=== PATIENT | male | born 1945 | race Caucasian/White ===

== ENCOUNTER 2018-01-28 04:13 | Inpatient (IN) | payer OTHER, MEDICARE ==
[~2018-01-28] VITALS: Ht 177.8 cm; Wt 99.4 kg
[~2018-01-28 04:13] MED LIST: CLOP75TA41 PO; FLUT27.52; GABA300C10 PO; IBUP800T24 PO; MONT10TA34 PO; NOR10T PO; PANT1INJ3 IV; PITA4TAB PO; THEO200T26 PO; TIOTCAP INH
[2018-01-28] MEDS ORDERED: IPRATROPIUM BROM 0.5 MG/2.5ML INH SOL ONE (05:54)
[2018-01-28] MEDS ORDERED: ALBUTEROL SULF 2.5 MG/0.5ML(0.5%) NEB SOLN ONE (05:54)
[2018-01-28] MEDS ORDERED: methylPREDNISolone SOD SUCC 125 MG/2 ML VL IV ONE (06:00)
[2018-01-28] MEDS ORDERED: IPRATROPIUM BROM 0.5 MG/2.5ML INH SOL NEB ONE (06:00)
[2018-01-28] MEDS ORDERED: IPRATROPIUM BROM 0.5 MG/2.5ML INH SOL HHN ONE (06:00)
[2018-01-28] MEDS ORDERED: ALBUTEROL SULF 2.5 MG/0.5ML(0.5%) NEB SOLN NEB ONE (06:00)
[2018-01-28] MEDS ORDERED: ALBUTEROL SULF 2.5 MG/0.5ML(0.5%) NEB SOLN HHN ONE (06:00)
[2018-01-28 06:09] LABS: Basophils # (auto) 0.1 uL; Basophils % (auto) 0.6 % (0.0-2.0); Eosinophils # (auto) 0.3 uL; Eosinophils % (auto) 1.9 % (0.0-7.0); Hemoglobin 14.2 g/dL (13.5-17.5); Lymphocytes % (auto) 7.3 % (10.0-50.0); Mean Corpuscular Hemoglobin 30.7 pg (28.0-32.0); Mean Corpuscular Hgb Conc. 32.9 g/dL (32.0-36.0); Mean Corpuscular Volume 93.3 fL (80.0-100.0); Monocytes # (auto) 0.8 uL; Monocytes % (auto) 5.6 % (0.0-12.0); Neutrophils # (auto) 11.4 uL; Neutrophils % (auto) 84.6 % (37.0-80.0); Platelet Count (auto) 206 10^3/uL (140-450); Red Blood Cells 4.61 10^6/uL (4.5-5.90); Red Cell Distribution Width 14.8 % (11.8-14.3); White Blood Cell 13.5 10^3/uL (4.4-10.8)
[2018-01-28 06:28] LABS: Albumin 3.3 g/dL (3.4-5.0); Calcium 8.4 mg/dL (8.5-10.1)
[2018-01-28 06:33] LABS: Bilirubin, Total 0.5 mg/dL (0.2-1.0); Total Protein 6.6 g/dL (6.4-8.2)
[2018-01-28 06:36] LABS: Magnesium 1.9 mg/dL (1.6-2.6)
[2018-01-28] MEDS ORDERED: LACTULOSE 20Gm/30ML SOLN PO PRN (08:45)
[2018-01-28] MEDS ORDERED: LORazepam 0.5 MG TAB PO PRN (08:45)
[2018-01-28] MEDS ORDERED: ALBUTEROL SULF 2.5 MG/0.5ML(0.5%) NEB SOLN NEB PRN (08:45)
[2018-01-28] MEDS ORDERED: MORPHINE SULFATE 4 MG/ML SYR/VIAL IV PRN ×2 (08:45)
[2018-01-28] MEDS ORDERED: HYDROcodone-ACET 5/325MG TAB PO PRN (08:45)
[2018-01-28] MEDS ORDERED: NITROGLYCERIN 0.4 MG SL TAB SL PRN (08:45)
[2018-01-28] MEDS ORDERED: PROMETHAZINE HCL 25 MG/ML 1ML IV PRN (08:45)
[2018-01-28] MEDS: DOXYCYCLINE 100MG/250ML 250 ML IV SCH ×2 (09:05→20:43)
[2018-01-28] MEDS: SODIUM CHLORIDE 0.9% 1,000 ML IV SCH ×2 (09:05→21:49)
[2018-01-28 09:06] VITALS: BP 103/62
[2018-01-28] MEDS: GABAPENTIN 300 MG CAP PO SCH ×3 (09:10→21:48)
[2018-01-28 09:26] LABS: INR 0.91 (0.9-1.15); Partial Thromboplastin Time 24.7 sec (23.78-33.04); Prothrombin Time 9.8 sec (9.27-12.13)
[2018-01-28] MEDS: THEOPHYLLINE 80 MG/15ml ORAL Elixir PO SCH ×2 (09:36→10:00)
[2018-01-28] MEDS: ASPirin 81 mg TAB PO SCH (10:42)
[2018-01-28] MEDS: CLOPIDOGREL BISULFATE 75 MG TAB PO SCH (10:42)
[2018-01-28] MEDS: PANTOPRAZOLE 40 MG TAB PO SCH (10:42)
[2018-01-28] MEDS: ENOXAPARIN SOD 80 MG/0.8ML SYRINGE SC SCH ×3 (10:43→22:00)
[2018-01-28] MEDS: MONTELUKAST SODIUM 10 MG TAB PO SCH (10:43)
[2018-01-28] MEDS: KETOCONAZOLE 2 % TOPICAL CREAM 15GM TOP SCH ×2 (11:01→21:49)
[2018-01-28] MEDS: ALBUTEROL SULF 2.5 MG/0.5ML(0.5%) NEB SOLN NEB SCH ×2 (12:00→18:21)
[2018-01-28] MEDS: IPRATROPIUM BROM 0.5 MG/2.5ML INH SOL NEB SCH ×2 (12:00→18:21)
[2018-01-28] MEDS: methylPREDNISolone SOD SUCC 40 MG/ML VL IV SCH (12:24)
[2018-01-28] MEDS: ACETAMINOPHEN 500 MG TAB PO PRN (14:01)
[2018-01-28] MEDS ORDERED: ACETYLCYSTEINE ORAL for CIN 20%(200MG/ML) 4ML PO ONE (17:15)
[2018-01-28 20:54] VITALS: BP 107/63
[2018-01-28] MEDS: ATORVASTATIN 20 MG TAB PO SCH (21:48)
[2018-01-28 21:55] VITALS: BP 107/63
[2018-01-29] MEDS: ALBUTEROL SULF 2.5 MG/0.5ML(0.5%) NEB SOLN NEB SCH ×3 (00:40→11:28)
[2018-01-29] MEDS: IPRATROPIUM BROM 0.5 MG/2.5ML INH SOL NEB SCH ×4 (00:40→19:00)
[2018-01-29] MEDS: methylPREDNISolone SOD SUCC 40 MG/ML VL IV SCH ×3 (03:33→17:06)
[2018-01-29 05:00] VITALS: BP 147/81
[2018-01-29] MEDS: ACETAMINOPHEN 500 MG TAB PO PRN (05:04)
[2018-01-29] MEDS: GABAPENTIN 300 MG CAP PO SCH ×4 (05:42→20:59)
[2018-01-29 06:54] LABS: Cholesterol 91 mg/dL (< 200); HDL Cholesterol 57 mg/dL (40-59); LDL Cholesterol 39 mg/dL (< 100); Triglycerides 63 mg/dL (< 150)
[2018-01-29 09:00] VITALS: BP 98/65
[2018-01-29] MEDS ORDERED: SODIUM CHLORIDE 0.9% 500 ML IV ONE (09:15)
[2018-01-29] MEDS ORDERED: cefTRIAXone 1GM/10ml IVPUSH 10 ML IV ONE (09:15)
[2018-01-29] MEDS: THEOPHYLLINE 80 MG/15ml ORAL Elixir PO SCH (10:00)
[2018-01-29] MEDS: FLUTICASONE FUROATE SCH (10:00)
[2018-01-29] MEDS: CLOPIDOGREL BISULFATE 75 MG TAB PO SCH (10:43)
[2018-01-29] MEDS: MONTELUKAST SODIUM 10 MG TAB PO SCH (10:43)
[2018-01-29] MEDS: ASPirin 81 mg TAB PO SCH (10:45)
[2018-01-29] MEDS: PANTOPRAZOLE 40 MG TAB PO SCH (10:45)
[2018-01-29] MEDS: ENOXAPARIN SOD 80 MG/0.8ML SYRINGE SC SCH ×2 (10:46→21:00)
[2018-01-29] MEDS: AZITHROMYCIN 500MG/ 250ML 250 ML IV SCH (10:50)
[2018-01-29] MEDS: ACETYLCYSTEINE ORAL for CIN 20%(200MG/ML) 4ML PO SCH ×2 (10:52→22:00)
[2018-01-29] MEDS: KETOCONAZOLE 2 % TOPICAL CREAM 15GM TOP SCH ×2 (10:53→22:00)
[2018-01-29] MEDS ORDERED: BUDESONIDE (INHALATION) 0.5 MG/2 ML NEB NEB ONE (12:00)
[2018-01-29] MEDS: LEVALBUTEROL HCL 1.25 MG/3 ML NEB NEB SCH ×2 (12:15→19:01)
[2018-01-29 13:00] VITALS: BP 108/67
[2018-01-29] MEDS ORDERED: LORazepam 2MG/ML-1ML VIAL IV ONE (13:00)
[2018-01-29 17:00] VITALS: BP 137/74
[2018-01-29] MEDS ORDERED: ALBUTEROL SULF 2.5 MG/0.5ML(0.5%) NEB SOLN ONE (17:24)
[2018-01-29] MEDS ORDERED: ACETYLCYSTEINE 10 %(100MG/ML) SOL 4ML NEB SCH (18:00)
[2018-01-29] MEDS: ACETYLCYSTEINE 10 %(100MG/ML) SOL 4ML NEB SCH (19:01)
[2018-01-29] MEDS: BUDESONIDE (INHALATION) 0.5 MG/2 ML NEB NEB SCH (19:01)
[2018-01-29] MEDS: LORazepam 2MG/ML-1ML VIAL IV PRN (19:57)
[2018-01-29] MEDS: ATORVASTATIN 20 MG TAB PO SCH (20:58)
[2018-01-29 22:00] VITALS: BP 108/60
[2018-01-30] MEDS: methylPREDNISolone SOD SUCC 40 MG/ML VL IV SCH ×5 (00:10→23:23)
[2018-01-30] MEDS: LEVALBUTEROL HCL 1.25 MG/3 ML NEB NEB SCH ×5 (00:28→23:43)
[2018-01-30] MEDS: IPRATROPIUM BROM 0.5 MG/2.5ML INH SOL NEB SCH ×5 (00:28→23:43)
[2018-01-30] MEDS: ACETYLCYSTEINE 10 %(100MG/ML) SOL 4ML NEB SCH ×5 (00:28→23:42)
[2018-01-30 05:00] VITALS: BP 113/82
[2018-01-30] MEDS: GABAPENTIN 300 MG CAP PO SCH ×3 (06:27→21:31)
[2018-01-30] MEDS: BUDESONIDE (INHALATION) 0.5 MG/2 ML NEB NEB SCH ×2 (06:55→18:20)
[2018-01-30 09:00] VITALS: BP 121/69
[2018-01-30] MEDS ORDERED: cefTRIAXone 1GM/10ml IVPUSH 10 ML IV SCH (09:00)
[2018-01-30] MEDS: AZITHROMYCIN 500MG/ 250ML 250 ML IV SCH (09:13)
[2018-01-30] MEDS: ASPirin 81 mg TAB PO SCH (09:14)
[2018-01-30] MEDS: CLOPIDOGREL BISULFATE 75 MG TAB PO SCH (09:14)
[2018-01-30] MEDS: THEOPHYLLINE 80 MG/15ml ORAL Elixir PO SCH (09:15)
[2018-01-30] MEDS: FLUTICASONE FUROATE SCH (09:32)
[2018-01-30] MEDS: ENOXAPARIN SOD 80 MG/0.8ML SYRINGE SC SCH ×3 (09:32→21:34)
[2018-01-30] MEDS: MONTELUKAST SODIUM 10 MG TAB PO SCH (09:32)
[2018-01-30] MEDS: KETOCONAZOLE 2 % TOPICAL CREAM 15GM TOP SCH ×2 (09:32→21:36)
[2018-01-30] MEDS: PANTOPRAZOLE 40 MG TAB PO SCH (09:32)
[2018-01-30] MEDS: ACETYLCYSTEINE ORAL for CIN 20%(200MG/ML) 4ML PO SCH ×2 (12:41→21:34)
[2018-01-30 13:09] VITALS: BP 104/71
[2018-01-30 13:37] LABS: Hematocrit 40.4 % (41.0-53.0); Hemoglobin 12.8 g/dL (13.5-17.5); Mean Corpuscular Hemoglobin 29.5 pg (28.0-32.0); Mean Corpuscular Hgb Conc. 31.6 g/dL (32.0-36.0); Mean Corpuscular Volume 93.3 fL (80.0-100.0); Platelet Count (auto) 185 10^3/uL (140-450); Red Blood Cells 4.33 10^6/uL (4.5-5.90); Red Cell Distribution Width 14.9 % (11.8-14.3); White Blood Cell 26.4 10^3/uL (4.4-10.8)
[2018-01-30 13:42] LABS: Basophils % (manual) 0 (0.0-2.0); Blast Cells 0; Eosinophils % (manual) 0 (0-7); Promyelocytes % 0; Reactive Lymphocytes 0
[2018-01-30 14:04] LABS: Albumin 2.5 g/dL (3.4-5.0); BUN/Creatinine Ratio 25.5; Bilirubin, Total 0.6 mg/dL (0.2-1.0); Calcium 8.7 mg/dL (8.5-10.1); Potassium 4.6 mmol/L (3.5-5.1); Total Protein 6.1 g/dL (6.4-8.2)
[2018-01-30 14:10] LABS: Band Neutrophils % (manual) 21; Lymphocytes % (manual) 2 (10.0-50.0); Metamyelocytes % 3; Monocytes % (manual) 5 (0-12); Myelocytes % 1
[2018-01-30] MEDS: PIPERACILLIN-TAZOB 3.375GM 100 ML IV SCH ×2 (14:11→19:40)
[2018-01-30] MEDS: LORazepam 2MG/ML-1ML VIAL IV PRN (15:49)
[2018-01-30 16:34] VITALS: BP 111/72
[2018-01-30] MEDS: TEMAZEPAM 15 MG CAP PO PRN (21:31)
[2018-01-30] MEDS: ATORVASTATIN 20 MG TAB PO SCH (21:31)
[2018-01-30 21:44] VITALS: BP 112/66
[2018-01-31] VITALS (14 sets, daily range): BP systolic 110–142; BP diastolic 60–91
[2018-01-31] MEDS ORDERED: ALBUTEROL SULF 2.5 MG/0.5ML(0.5%) NEB SOLN ONE (00:09)
[2018-01-31] MEDS: PIPERACILLIN-TAZOB 3.375GM 100 ML IV SCH ×4 (01:44→19:51)
[2018-01-31] MEDS: LEVALBUTEROL HCL 1.25 MG/3 ML NEB NEB SCH ×3 (05:45→17:51)
[2018-01-31] MEDS: IPRATROPIUM BROM 0.5 MG/2.5ML INH SOL NEB SCH ×3 (05:45→17:50)
[2018-01-31] MEDS: ACETYLCYSTEINE 10 %(100MG/ML) SOL 4ML NEB SCH ×3 (05:46→17:50)
[2018-01-31] MEDS: BUDESONIDE (INHALATION) 0.5 MG/2 ML NEB NEB SCH ×2 (05:49→17:51)
[2018-01-31 06:11] LABS: Basophils # (auto) 0.1 uL; Basophils % (auto) 0.3 % (0.0-2.0); Eosinophils # (auto) 0 uL; Hematocrit 39.3 % (41.0-53.0); Hemoglobin 13.3 g/dL (13.5-17.5); Lymphocytes # (auto) 0.4 uL; Lymphocytes % (auto) 1.4 % (10.0-50.0); Mean Corpuscular Hemoglobin 31.2 pg (28.0-32.0); Mean Corpuscular Hgb Conc. 33.9 g/dL (32.0-36.0); Mean Corpuscular Volume 92.1 fL (80.0-100.0); Monocytes # (auto) 0.6 uL; Monocytes % (auto) 2.6 % (0.0-12.0); Neutrophils # (auto) 23.9 uL; Neutrophils % (auto) 95.7 % (37.0-80.0); Platelet Count (auto) 185 10^3/uL (140-450); Red Blood Cells 4.27 10^6/uL (4.5-5.90); Red Cell Distribution Width 14.3 % (11.8-14.3)
[2018-01-31] MEDS: methylPREDNISolone SOD SUCC 40 MG/ML VL IV SCH ×3 (06:11→17:23)
[2018-01-31] MEDS: GABAPENTIN 300 MG CAP PO SCH ×3 (06:11→21:55)
[2018-01-31 06:27] LABS: BUN/Creatinine Ratio 24.8; Calcium 8.3 mg/dL (8.5-10.1); Potassium 4.2 mmol/L (3.5-5.1)
[2018-01-31] MEDS ORDERED: VANCOMYCIN PER PHARMACY 0 MG IV SCH (08:00)
[2018-01-31] MEDS ORDERED: HYDROcodone-ACET 5/325MG TAB PO PRN (08:00)
[2018-01-31] MEDS ORDERED: MORPHINE SULFATE 4 MG/ML SYR/VIAL IV PRN ×2 (08:00)
[2018-01-31] MEDS: FLUTICASONE FUROATE SCH (09:05)
[2018-01-31] MEDS: ASPirin 81 mg TAB PO SCH (09:06)
[2018-01-31] MEDS: ONDANSETRON HCL 4 MG/2 ML VIAL IV PRN ×3 (09:11→21:38)
[2018-01-31] MEDS: CLOPIDOGREL BISULFATE 75 MG TAB PO SCH (09:16)
[2018-01-31] MEDS: PANTOPRAZOLE 40 MG TAB PO SCH (09:17)
[2018-01-31] MEDS: MONTELUKAST SODIUM 10 MG TAB PO SCH (09:18)
[2018-01-31] MEDS: THEOPHYLLINE 80 MG/15ml ORAL Elixir PO SCH (09:19)
[2018-01-31] MEDS: KETOCONAZOLE 2 % TOPICAL CREAM 15GM TOP SCH ×2 (09:29→21:55)
[2018-01-31] MEDS: LORazepam 2MG/ML-1ML VIAL IV PRN ×2 (09:29→21:55)
[2018-01-31] MEDS: ENOXAPARIN SOD 80 MG/0.8ML SYRINGE SC SCH ×3 (09:29→22:00)
[2018-01-31] MEDS ORDERED: METOCLOPRAMIDE HCL 5MG/ml INJ 2ml VIAL IV PRN (10:45)
[2018-01-31] MEDS ORDERED: FUROSEMIDE 40 MG/4 ML VIAL IV ONE (10:45)
[2018-01-31] MEDS: VANCOMYCIN 1,250 MG in D5W 5% 250 ML IV SCH ×2 (11:16→22:19)
[2018-01-31] MEDS: AZITHROMYCIN 500MG/ 250ML 250 ML IV SCH (11:51)
[2018-01-31 18:12] LABS: INR 0.9 (0.9-1.15); Prothrombin Time 9.7 sec (9.27-12.13)
[2018-01-31] MEDS ORDERED: LIDOCAINE 1% (LOCAL ANESTH.) PF 5ml SDV ID ONE (18:45)
[2018-01-31] MEDS: ATORVASTATIN 20 MG TAB PO SCH (21:55)
[2018-01-31] MEDS: SODIUM CHLOR 0.9% PF (SALINE LOCK) 10ML VIAL/SYR IV SCH (21:55)
[2018-02-01] VITALS (61 sets, daily range): BP systolic 82–152; BP diastolic 44–109
[2018-02-01] MEDS: methylPREDNISolone SOD SUCC 40 MG/ML VL IV SCH ×4 (00:18→21:44)
[2018-02-01] MEDS: IPRATROPIUM BROM 0.5 MG/2.5ML INH SOL NEB SCH ×4 (00:36→18:45)
[2018-02-01] MEDS: ACETYLCYSTEINE 10 %(100MG/ML) SOL 4ML NEB SCH ×4 (00:37→18:46)
[2018-02-01] MEDS: LEVALBUTEROL HCL 1.25 MG/3 ML NEB NEB SCH ×4 (00:37→18:46)
[2018-02-01] MEDS: PIPERACILLIN-TAZOB 3.375GM 100 ML IV SCH ×2 (01:57→08:10)
[2018-02-01] MEDS: ONDANSETRON HCL 4 MG/2 ML VIAL IV PRN (02:29)
[2018-02-01] MEDS: GABAPENTIN 300 MG CAP PO SCH ×3 (05:45→21:44)
[2018-02-01 05:47] LABS: Albumin 2.2 g/dL (3.4-5.0); BUN/Creatinine Ratio 29.3; Calcium 8.2 mg/dL (8.5-10.1); Potassium 3.9 mmol/L (3.5-5.1)
[2018-02-01 05:50] LABS: Bilirubin, Total 0.8 mg/dL (0.2-1.0); Total Protein 6.1 g/dL (6.4-8.2)
[2018-02-01] MEDS: BUDESONIDE (INHALATION) 0.5 MG/2 ML NEB NEB SCH ×2 (06:30→18:46)
[2018-02-01 09:24] LABS: Basophils # (auto) 0.1 uL; Basophils % (auto) 0.4 % (0.0-2.0); Eosinophils # (auto) 0 uL; Hematocrit 41.6 % (41.0-53.0); Hemoglobin 13.6 g/dL (13.5-17.5); Lymphocytes # (auto) 0.4 uL; Lymphocytes % (auto) 1.8 % (10.0-50.0); Mean Corpuscular Hemoglobin 30.2 pg (28.0-32.0); Mean Corpuscular Hgb Conc. 32.7 g/dL (32.0-36.0); Mean Corpuscular Volume 92.2 fL (80.0-100.0); Monocytes # (auto) 0.6 uL; Monocytes % (auto) 2.7 % (0.0-12.0); Neutrophils # (auto) 20.1 uL; Neutrophils % (auto) 95.1 % (37.0-80.0); Platelet Count (auto) 190 10^3/uL (140-450); Red Blood Cells 4.51 10^6/uL (4.5-5.90); Red Cell Distribution Width 14.3 % (11.8-14.3); White Blood Cell 21.1 10^3/uL (4.4-10.8)
[2018-02-01] MEDS ORDERED: IODIXANOL 320MG/ML 100ML BTL IV ONE (09:29)
[2018-02-01] MEDS ORDERED: LIDOCAINE 2% (LOCAL ANESTH.) PF 5ml SDV ONE (09:29)
[2018-02-01] MEDS ORDERED: HEPARIN IN NS 1000Units/500mL 0 ML ONE (09:29)
[2018-02-01] MEDS: MONTELUKAST SODIUM 10 MG TAB PO SCH (10:00)
[2018-02-01] MEDS: FLUTICASONE FUROATE SCH (10:00)
[2018-02-01] MEDS: ASPirin 81 mg TAB PO SCH (10:00)
[2018-02-01] MEDS: KETOCONAZOLE 2 % TOPICAL CREAM 15GM TOP SCH ×2 (10:00→21:44)
[2018-02-01] MEDS: THEOPHYLLINE 80 MG/15ml ORAL Elixir PO SCH (10:00)
[2018-02-01] MEDS: PANTOPRAZOLE 40 MG/10 ML VIAL IV SCH (10:13)
[2018-02-01] MEDS: ENOXAPARIN SOD 80 MG/0.8ML SYRINGE SC SCH (10:13)
[2018-02-01] MEDS: VANCOMYCIN 1,250 MG in D5W 5% 250 ML IV SCH (10:13)
[2018-02-01] MEDS: SODIUM CHLOR 0.9% PF (SALINE LOCK) 10ML VIAL/SYR IV SCH ×2 (10:14→21:44)
[2018-02-01] MEDS ORDERED: GASTROGRAFIN 120 ML SOL ONE (11:00)
[2018-02-01] MEDS: PIPERACILLIN-TAZO 4.5GM 100 ML IV SCH ×2 (11:43→17:54)
[2018-02-01] MEDS: SODIUM CHLORIDE 0.9% 1,000 ML IV SCH (11:43)
[2018-02-01] MEDS: LORazepam 2MG/ML-1ML VIAL IV PRN (20:51)
[2018-02-01] MEDS: ATORVASTATIN 20 MG TAB PO SCH (21:44)
[2018-02-01] MEDS: TEMAZEPAM 15 MG CAP PO PRN (21:52)
[2018-02-01] MEDS ORDERED: ENOXAPARIN SOD 80 MG/0.8ML SYRINGE SC SCH (22:00)
[2018-02-02] VITALS (11 sets, daily range): BP systolic 119–139; BP diastolic 64–95
[2018-02-02] MEDS: PIPERACILLIN-TAZO 4.5GM 100 ML IV SCH ×2 (00:08→05:24)
[2018-02-02] MEDS: ACETYLCYSTEINE 10 %(100MG/ML) SOL 4ML NEB SCH ×4 (00:41→18:59)
[2018-02-02] MEDS: IPRATROPIUM BROM 0.5 MG/2.5ML INH SOL NEB SCH ×4 (00:41→18:59)
[2018-02-02] MEDS: LEVALBUTEROL HCL 1.25 MG/3 ML NEB NEB SCH ×4 (00:42→18:59)
[2018-02-02] MEDS: methylPREDNISolone SOD SUCC 40 MG/ML VL IV SCH ×3 (05:23→21:21)
[2018-02-02] MEDS: GABAPENTIN 300 MG CAP PO SCH ×3 (05:24→21:22)
[2018-02-02] MEDS: SODIUM CHLORIDE 0.9% 1,000 ML IV SCH (05:24)
[2018-02-02 05:56] LABS: Hematocrit 41.9 % (41.0-53.0); Hemoglobin 13.4 g/dL (13.5-17.5); Mean Corpuscular Hemoglobin 29.8 pg (28.0-32.0); Mean Corpuscular Hgb Conc. 32.1 g/dL (32.0-36.0); Mean Corpuscular Volume 92.9 fL (80.0-100.0); Platelet Count (auto) 193 10^3/uL (140-450); Red Blood Cells 4.51 10^6/uL (4.5-5.90); Red Cell Distribution Width 14.1 % (11.8-14.3); White Blood Cell 19.8 10^3/uL (4.4-10.8)
[2018-02-02 05:57] LABS: Basophils % (manual) 0 (0.0-2.0); Blast Cells 0; Eosinophils % (manual) 0 (0-7); Metamyelocytes % 0; Myelocytes % 0; Promyelocytes % 0; Reactive Lymphocytes 0
[2018-02-02 06:15] LABS: Calcium 7.9 mg/dL (8.5-10.1)
[2018-02-02] MEDS: BUDESONIDE (INHALATION) 0.5 MG/2 ML NEB NEB SCH ×2 (06:30→18:58)
[2018-02-02 06:48] LABS: Band Neutrophils % (manual) 4; Lymphocytes % (manual) 4 (10.0-50.0); Monocytes % (manual) 2 (0-12)
[2018-02-02] MEDS ORDERED: CLOPIDOGREL BISULFATE 75 MG TAB PO SCH (10:00)
[2018-02-02] MEDS: KETOCONAZOLE 2 % TOPICAL CREAM 15GM TOP SCH ×2 (10:00→22:00)
[2018-02-02] MEDS: FLUTICASONE FUROATE SCH (10:00)
[2018-02-02] MEDS: SODIUM CHLOR 0.9% PF (SALINE LOCK) 10ML VIAL/SYR IV SCH ×2 (10:28→21:21)
[2018-02-02] MEDS: PANTOPRAZOLE 40 MG/10 ML VIAL IV SCH (10:28)
[2018-02-02] MEDS: ASPirin 81 mg TAB PO SCH (10:29)
[2018-02-02] MEDS: MONTELUKAST SODIUM 10 MG TAB PO SCH (10:29)
[2018-02-02] MEDS ORDERED: IPRATROPIUM BROM 0.5 MG/2.5ML INH SOL NEB PRN (12:00)
[2018-02-02] MEDS: THEOPHYLLINE 80 MG/15ml ORAL Elixir PO SCH (13:32)
[2018-02-02] MEDS: MEROPENEM 1GM IVPB 100 ML IV SCH ×2 (13:32→22:00)
[2018-02-02] MEDS: ATORVASTATIN 20 MG TAB PO SCH (21:21)
[2018-02-02] MEDS: LORazepam 2MG/ML-1ML VIAL IV PRN (21:22)
[2018-02-03] VITALS (13 sets, daily range): BP systolic 118–156; BP diastolic 72–90
[2018-02-03] MEDS: IPRATROPIUM BROM 0.5 MG/2.5ML INH SOL NEB SCH ×5 (00:37→23:36)
[2018-02-03] MEDS: ACETYLCYSTEINE 10 %(100MG/ML) SOL 4ML NEB SCH ×5 (00:37→23:35)
[2018-02-03] MEDS: LEVALBUTEROL HCL 1.25 MG/3 ML NEB NEB SCH ×5 (00:38→23:35)
[2018-02-03] MEDS: BUDESONIDE (INHALATION) 0.5 MG/2 ML NEB NEB SCH ×2 (05:49→18:04)
[2018-02-03] MEDS: MEROPENEM 1GM IVPB 100 ML IV SCH ×3 (06:00→21:49)
[2018-02-03] MEDS: GABAPENTIN 300 MG CAP PO SCH ×3 (06:00→22:00)
[2018-02-03] MEDS: methylPREDNISolone SOD SUCC 40 MG/ML VL IV SCH ×3 (06:00→21:49)
[2018-02-03 09:53] LABS: Urine Bacteria NONE SEEN /hpf (None Seen); Urine Blood Negative /uL (Negative); Urine Specific Gravity 1.022 (1.001-1.035); Urine WBC <1 /hpf (0 - 3)
[2018-02-03] MEDS: ENOXAPARIN SOD 40 MG/0.4 ML SYRINGE SC SCH (10:00)
[2018-02-03] MEDS: KETOCONAZOLE 2 % TOPICAL CREAM 15GM TOP SCH ×2 (10:00→22:00)
[2018-02-03] MEDS ORDERED: IODIXANOL 320MG/ML 100ML BTL IV ONE (10:07)
[2018-02-03] MEDS ORDERED: LIDOCAINE 2%HCL (LOCAL ANESTH.) INJ 10ml MDV ONE (10:07)
[2018-02-03 10:20] LABS: Hematocrit 42.7 % (41.0-53.0); Mean Corpuscular Hemoglobin 30.3 pg (28.0-32.0); Mean Corpuscular Hgb Conc. 32.8 g/dL (32.0-36.0); Mean Corpuscular Volume 92.3 fL (80.0-100.0); Platelet Count (auto) 211 10^3/uL (140-450); Red Blood Cells 4.63 10^6/uL (4.5-5.90); Red Cell Distribution Width 14.3 % (11.8-14.3); White Blood Cell 19.2 10^3/uL (4.4-10.8)
[2018-02-03 10:23] LABS: Basophils % (manual) 0 (0.0-2.0); Blast Cells 0; Eosinophils % (manual) 0 (0-7); Metamyelocytes % 0; Myelocytes % 0; Promyelocytes % 0; Reactive Lymphocytes 0
[2018-02-03] MEDS ORDERED: SODIUM CHLORIDE 0.9 % NEB SOLN 3ML NEB ONE (10:27)
[2018-02-03] MEDS ORDERED: ALBUTEROL SULF 2.5 MG/0.5ML(0.5%) NEB SOLN ONE (10:27)
[2018-02-03] MEDS ORDERED: ANGIOMAX 250 MG VIAL IV ONE (10:31)
[2018-02-03] MEDS ORDERED: MIDAZOLAM HCL 1MG/1ML-2 ML VIAL ONE (10:32)
[2018-02-03] MEDS ORDERED: SODIUM CHL 0.9% 0 ML ONE (10:32)
[2018-02-03] MEDS ORDERED: fentaNYL CITRATE 100 MCG/2 ML VL ONE (10:32)
[2018-02-03 10:33] LABS: BUN/Creatinine Ratio 32.4; Calcium 8.5 mg/dL (8.5-10.1); Potassium 4.5 mmol/L (3.5-5.1)
[2018-02-03 11:07] LABS: Band Neutrophils % (manual) 1; Lymphocytes % (manual) 4 (10.0-50.0); Monocytes % (manual) 3 (0-12)
[2018-02-03] MEDS: ACETAMINOPHEN 500 MG TAB PO PRN (16:13)
[2018-02-03] MEDS: PANTOPRAZOLE 40 MG/10 ML VIAL IV SCH (16:13)
[2018-02-03] MEDS: ASPirin 81 mg TAB PO SCH (16:13)
[2018-02-03] MEDS: SODIUM CHLOR 0.9% PF (SALINE LOCK) 10ML VIAL/SYR IV SCH ×2 (16:13→21:49)
[2018-02-03] MEDS: MONTELUKAST SODIUM 10 MG TAB PO SCH (16:14)
[2018-02-03] MEDS ORDERED: LEVOFLOXACIN 750MG 150 ML IV ONE (16:15)
[2018-02-03] MEDS: THEOPHYLLINE 80 MG/15ml ORAL Elixir PO SCH (16:25)
[2018-02-03] MEDS: ATORVASTATIN 20 MG TAB PO SCH (21:49)
[2018-02-04 02:08] VITALS: BP 118/66
[2018-02-04 03:50] VITALS: BP 135/77
[2018-02-04] MEDS ORDERED: SODIUM CHLORIDE 0.9 % NEB SOLN 3ML NEB ONE (05:17)
[2018-02-04] MEDS: GABAPENTIN 300 MG CAP PO SCH ×3 (06:00→21:47)
[2018-02-04] MEDS: MEROPENEM 1GM IVPB 100 ML IV SCH ×3 (06:00→21:46)
[2018-02-04] MEDS: methylPREDNISolone SOD SUCC 40 MG/ML VL IV SCH ×3 (06:00→21:47)
[2018-02-04 06:09] LABS: Hematocrit 42.3 % (41.0-53.0); Hemoglobin 13.8 g/dL (13.5-17.5); Mean Corpuscular Hgb Conc. 32.5 g/dL (32.0-36.0); Mean Corpuscular Volume 92.3 fL (80.0-100.0); Platelet Count (auto) 206 10^3/uL (140-450); Red Blood Cells 4.59 10^6/uL (4.5-5.90); White Blood Cell 13.8 10^3/uL (4.4-10.8)
[2018-02-04 06:11] LABS: Basophils % (manual) 0 (0.0-2.0); Blast Cells 0; Eosinophils % (manual) 0 (0-7); Myelocytes % 0; Promyelocytes % 0; Reactive Lymphocytes 0
[2018-02-04 06:19] LABS: BUN/Creatinine Ratio 31.4; Calcium 8.2 mg/dL (8.5-10.1); Potassium 4.6 mmol/L (3.5-5.1)
[2018-02-04] MEDS: ACETYLCYSTEINE 10 %(100MG/ML) SOL 4ML NEB SCH ×3 (06:24→19:23)
[2018-02-04] MEDS: IPRATROPIUM BROM 0.5 MG/2.5ML INH SOL NEB SCH ×3 (06:24→19:23)
[2018-02-04] MEDS: LEVALBUTEROL HCL 1.25 MG/3 ML NEB NEB SCH ×3 (06:24→19:21)
[2018-02-04] MEDS: BUDESONIDE (INHALATION) 0.5 MG/2 ML NEB NEB SCH ×2 (06:25→19:22)
[2018-02-04 06:33] LABS: Band Neutrophils % (manual) 3; Lymphocytes % (manual) 3 (10.0-50.0); Metamyelocytes % 2; Monocytes % (manual) 1 (0-12)
[2018-02-04 08:00] VITALS: BP 157/99
[2018-02-04] MEDS: PANTOPRAZOLE 40 MG/10 ML VIAL IV SCH (10:00)
[2018-02-04] MEDS: ENOXAPARIN SOD 40 MG/0.4 ML SYRINGE SC SCH (10:00)
[2018-02-04] MEDS: KETOCONAZOLE 2 % TOPICAL CREAM 15GM TOP SCH ×2 (10:00→22:00)
[2018-02-04] MEDS: LEVOFLOXACIN 750MG 150 ML IV SCH (10:01)
[2018-02-04] MEDS: ASPirin 81 mg TAB PO SCH (10:01)
[2018-02-04] MEDS: MONTELUKAST SODIUM 10 MG TAB PO SCH (10:01)
[2018-02-04] MEDS: SODIUM CHLOR 0.9% PF (SALINE LOCK) 10ML VIAL/SYR IV SCH ×2 (10:01→21:46)
[2018-02-04] MEDS: THEOPHYLLINE 80 MG/15ml ORAL Elixir PO SCH (10:01)
[2018-02-04 12:00] VITALS: BP 138/90
[2018-02-04] MEDS ORDERED: HYDROcodone-ACET 5/325MG TAB PO PRN (15:30)
[2018-02-04] MEDS ORDERED: MORPHINE SULFATE 4 MG/ML SYR/VIAL IV PRN ×2 (15:30)
[2018-02-04 15:50] VITALS: BP 125/62
[2018-02-04] MEDS ORDERED: ALBUTEROL SULF 2.5 MG/0.5ML(0.5%) NEB SOLN ONE (18:17)
[2018-02-04] MEDS: ALBUTEROL SULF 2.5 MG/0.5ML(0.5%) NEB SOLN NEB PRN (19:24)
[2018-02-04 19:54] VITALS: BP 123/69
[2018-02-04] MEDS: ATORVASTATIN 20 MG TAB PO SCH (21:47)
[2018-02-05] VITALS: BP 113/71
[2018-02-05] MEDS: ALBUTEROL SULF 2.5 MG/0.5ML(0.5%) NEB SOLN NEB PRN ×2 (00:26→06:44)
[2018-02-05] MEDS: ACETYLCYSTEINE 10 %(100MG/ML) SOL 4ML NEB SCH ×5 (00:27→23:53)
[2018-02-05] MEDS: IPRATROPIUM BROM 0.5 MG/2.5ML INH SOL NEB SCH ×5 (00:27→23:52)
[2018-02-05] MEDS: LEVALBUTEROL HCL 1.25 MG/3 ML NEB NEB SCH ×5 (06:00→23:52)
[2018-02-05] MEDS: GABAPENTIN 300 MG CAP PO SCH ×3 (06:41→22:42)
[2018-02-05] MEDS: MEROPENEM 1GM IVPB 100 ML IV SCH ×3 (06:41→22:41)
[2018-02-05 08:00] VITALS: BP 146/75
[2018-02-05] MEDS: KETOCONAZOLE 2 % TOPICAL CREAM 15GM TOP SCH ×2 (10:00→22:00)
[2018-02-05] MEDS: ENOXAPARIN SOD 40 MG/0.4 ML SYRINGE SC SCH ×2 (10:00→10:16)
[2018-02-05] MEDS: SODIUM CHLOR 0.9% PF (SALINE LOCK) 10ML VIAL/SYR IV SCH ×2 (10:14→22:41)
[2018-02-05] MEDS: LEVOFLOXACIN 750MG 150 ML IV SCH (10:14)
[2018-02-05] MEDS: methylPREDNISolone SOD SUCC 40 MG/ML VL IV SCH (10:14)
[2018-02-05] MEDS: FLUCONAZOLE 100 MG TAB PO SCH (10:15)
[2018-02-05] MEDS: ASPirin 81 mg TAB PO SCH (10:15)
[2018-02-05] MEDS: MONTELUKAST SODIUM 10 MG TAB PO SCH (10:15)
[2018-02-05] MEDS: THEOPHYLLINE 80 MG/15ml ORAL Elixir PO SCH (10:16)
[2018-02-05] MEDS: BUDESONIDE (INHALATION) 0.5 MG/2 ML NEB NEB SCH ×2 (10:18→19:42)
[2018-02-05 11:50] VITALS: BP 104/71
[2018-02-05] MEDS ORDERED: LORazepam 0.5 MG TAB PO PRN (13:45)
[2018-02-05 15:50] VITALS: BP 132/79
[2018-02-05 22:00] VITALS: BP 123/72
[2018-02-05] MEDS ORDERED: methylPREDNISolone SOD SUCC 40 MG/ML VL IV SCH (22:00)
[2018-02-05] MEDS: ATORVASTATIN 20 MG TAB PO SCH (22:42)
[2018-02-05] MEDS: TEMAZEPAM 15 MG CAP PO PRN (22:42)
[2018-02-06 05:00] VITALS: BP 153/81
[2018-02-06] MEDS: GABAPENTIN 300 MG CAP PO SCH ×3 (06:28→21:29)
[2018-02-06] MEDS: MEROPENEM 1GM IVPB 100 ML IV SCH ×3 (06:28→21:30)
[2018-02-06] MEDS: LEVALBUTEROL HCL 1.25 MG/3 ML NEB NEB SCH ×3 (07:17→18:55)
[2018-02-06] MEDS: ACETYLCYSTEINE 10 %(100MG/ML) SOL 4ML NEB SCH ×3 (07:17→18:56)
[2018-02-06] MEDS: BUDESONIDE (INHALATION) 0.5 MG/2 ML NEB NEB SCH ×2 (07:17→18:55)
[2018-02-06] MEDS: IPRATROPIUM BROM 0.5 MG/2.5ML INH SOL NEB SCH ×3 (07:17→18:55)
[2018-02-06 09:00] VITALS: BP_SYST 109; BP_SYST 134; BP_DIAS 66; BP_DIAS 79
[2018-02-06] MEDS: THEOPHYLLINE 80 MG/15ml ORAL Elixir PO SCH (10:00)
[2018-02-06] MEDS: SODIUM CHLOR 0.9% PF (SALINE LOCK) 10ML VIAL/SYR IV SCH ×2 (10:00→21:29)
[2018-02-06] MEDS: KETOCONAZOLE 2 % TOPICAL CREAM 15GM TOP SCH ×2 (10:00→21:30)
[2018-02-06] MEDS: ASPirin 81 mg TAB PO SCH (10:00)
[2018-02-06] MEDS: LEVOFLOXACIN 750MG 150 ML IV SCH (11:12)
[2018-02-06] MEDS: MONTELUKAST SODIUM 10 MG TAB PO SCH (11:13)
[2018-02-06] MEDS: predniSONE 20 MG TAB PO SCH (11:13)
[2018-02-06] MEDS: FLUCONAZOLE 100 MG TAB PO SCH (11:13)
[2018-02-06] MEDS: ENOXAPARIN SOD 40 MG/0.4 ML SYRINGE SC SCH (11:14)
[2018-02-06 13:00] VITALS: BP 119/62
[2018-02-06 17:00] VITALS: BP 113/56
[2018-02-06] MEDS: ALBUTEROL SULF 2.5 MG/0.5ML(0.5%) NEB SOLN NEB PRN (18:56)
[2018-02-06 20:11] VITALS: BP 113/56
[2018-02-06] MEDS: TEMAZEPAM 15 MG CAP PO PRN (21:29)
[2018-02-06] MEDS: ATORVASTATIN 20 MG TAB PO SCH (21:30)
[2018-02-06] MEDS: ACETAMINOPHEN 500 MG TAB PO PRN (21:48)
[2018-02-06 22:12] VITALS: BP 104/81
[2018-02-07] MEDS: IPRATROPIUM BROM 0.5 MG/2.5ML INH SOL NEB SCH ×4 (00:17→18:24)
[2018-02-07] MEDS: ACETYLCYSTEINE 10 %(100MG/ML) SOL 4ML NEB SCH ×4 (00:17→18:48)
[2018-02-07] MEDS: ALBUTEROL SULF 2.5 MG/0.5ML(0.5%) NEB SOLN NEB PRN (00:17)
[2018-02-07 05:32] VITALS: BP 113/70
[2018-02-07] MEDS: GABAPENTIN 300 MG CAP PO SCH ×4 (05:56→21:44)
[2018-02-07] MEDS: MEROPENEM 1GM IVPB 100 ML IV SCH ×3 (05:56→21:44)
[2018-02-07] MEDS: ACETAMINOPHEN 500 MG TAB PO PRN (06:08)
[2018-02-07 06:16] LABS: Basophils # (auto) 0 uL; Basophils % (auto) 0.2 % (0.0-2.0); Eosinophils # (auto) 0 uL; Hematocrit 40.8 % (41.0-53.0); Hemoglobin 13.4 g/dL (13.5-17.5); Lymphocytes % (auto) 5.8 % (10.0-50.0); Mean Corpuscular Hemoglobin 30.5 pg (28.0-32.0); Mean Corpuscular Volume 92.5 fL (80.0-100.0); Monocytes # (auto) 0.4 uL; Monocytes % (auto) 2.5 % (0.0-12.0); Neutrophils # (auto) 15.4 uL; Neutrophils % (auto) 91.5 % (37.0-80.0); Platelet Count (auto) 251 10^3/uL (140-450); Red Blood Cells 4.41 10^6/uL (4.5-5.90); White Blood Cell 16.9 10^3/uL (4.4-10.8)
[2018-02-07 06:34] LABS: BUN/Creatinine Ratio 28.1; Calcium 8.3 mg/dL (8.5-10.1); Potassium 5.2 mmol/L (3.5-5.1)
[2018-02-07] MEDS: LEVALBUTEROL HCL 1.25 MG/3 ML NEB NEB SCH ×4 (06:47→18:48)
[2018-02-07] MEDS: BUDESONIDE (INHALATION) 0.5 MG/2 ML NEB NEB SCH ×2 (06:47→18:24)
[2018-02-07 09:00] VITALS: BP 120/51
[2018-02-07] MEDS ORDERED: DOCUSATE SOD 100 MG CAP PO ONE (09:15)
[2018-02-07] MEDS: LEVOFLOXACIN 750MG 150 ML IV SCH (10:14)
[2018-02-07] MEDS: MONTELUKAST SODIUM 10 MG TAB PO SCH (10:16)
[2018-02-07] MEDS: predniSONE 20 MG TAB PO SCH (10:17)
[2018-02-07] MEDS: FLUCONAZOLE 100 MG TAB PO SCH (10:17)
[2018-02-07] MEDS: ENOXAPARIN SOD 40 MG/0.4 ML SYRINGE SC SCH (10:17)
[2018-02-07] MEDS: ASPirin 81 mg TAB PO SCH (10:17)
[2018-02-07] MEDS: SODIUM CHLOR 0.9% PF (SALINE LOCK) 10ML VIAL/SYR IV SCH ×2 (10:18→21:44)
[2018-02-07] MEDS: KETOCONAZOLE 2 % TOPICAL CREAM 15GM TOP SCH ×2 (10:19→21:45)
[2018-02-07] MEDS: THEOPHYLLINE 80 MG/15ml ORAL Elixir PO SCH (10:19)
[2018-02-07 12:00] VITALS: BP 103/55
[2018-02-07 17:00] VITALS: BP 120/75
[2018-02-07] MEDS: TEMAZEPAM 15 MG CAP PO PRN (21:44)
[2018-02-07] MEDS: DOCUSATE SOD 100 MG CAP PO SCH (21:44)
[2018-02-07] MEDS: ATORVASTATIN 20 MG TAB PO SCH (21:44)
[2018-02-07 22:15] VITALS: BP 134/70
[2018-02-08] MEDS: ACETYLCYSTEINE 10 %(100MG/ML) SOL 4ML NEB SCH ×4 (00:28→19:44)
[2018-02-08] MEDS: LEVALBUTEROL HCL 1.25 MG/3 ML NEB NEB SCH ×4 (00:28→19:43)
[2018-02-08] MEDS: IPRATROPIUM BROM 0.5 MG/2.5ML INH SOL NEB SCH ×4 (00:28→19:43)
[2018-02-08 05:01] VITALS: BP 134/79
[2018-02-08 06:12] LABS: Basophils # (auto) 0 uL; Basophils % (auto) 0.1 % (0.0-2.0); Eosinophils # (auto) 0 uL; Eosinophils % (auto) 0.1 % (0.0-7.0); Hematocrit 40.4 % (41.0-53.0); Hemoglobin 13.4 g/dL (13.5-17.5); Lymphocytes # (auto) 1.4 uL; Lymphocytes % (auto) 9.8 % (10.0-50.0); Mean Corpuscular Hemoglobin 30.4 pg (28.0-32.0); Mean Corpuscular Hgb Conc. 33.2 g/dL (32.0-36.0); Mean Corpuscular Volume 91.3 fL (80.0-100.0); Monocytes # (auto) 0.6 uL; Monocytes % (auto) 3.8 % (0.0-12.0); Neutrophils # (auto) 12.6 uL; Neutrophils % (auto) 86.2 % (37.0-80.0); Platelet Count (auto) 253 10^3/uL (140-450); Red Blood Cells 4.42 10^6/uL (4.5-5.90); Red Cell Distribution Width 14.3 % (11.8-14.3); White Blood Cell 14.6 10^3/uL (4.4-10.8)
[2018-02-08] MEDS: GABAPENTIN 300 MG CAP PO SCH ×3 (06:17→22:11)
[2018-02-08] MEDS: MEROPENEM 1GM IVPB 100 ML IV SCH ×3 (06:18→22:11)
[2018-02-08 09:00] VITALS: BP 152/77
[2018-02-08] MEDS: ASPirin 81 mg TAB PO SCH (09:18)
[2018-02-08] MEDS: FLUCONAZOLE 100 MG TAB PO SCH (09:18)
[2018-02-08] MEDS: predniSONE 20 MG TAB PO SCH (09:18)
[2018-02-08] MEDS: LEVOFLOXACIN 750MG 150 ML IV SCH (09:18)
[2018-02-08] MEDS: KETOCONAZOLE 2 % TOPICAL CREAM 15GM TOP SCH ×2 (09:19→22:00)
[2018-02-08] MEDS: ENOXAPARIN SOD 40 MG/0.4 ML SYRINGE SC SCH (09:19)
[2018-02-08] MEDS: MONTELUKAST SODIUM 10 MG TAB PO SCH (09:19)
[2018-02-08] MEDS: THEOPHYLLINE 80 MG/15ml ORAL Elixir PO SCH (09:20)
[2018-02-08] MEDS: DOCUSATE SOD 100 MG CAP PO SCH ×2 (09:26→22:11)
[2018-02-08] MEDS: BUDESONIDE (INHALATION) 0.5 MG/2 ML NEB NEB SCH ×2 (11:31→19:43)
[2018-02-08 13:00] VITALS: BP 130/60
[2018-02-08] MEDS: SODIUM CHLOR 0.9% PF (SALINE LOCK) 10ML VIAL/SYR IV SCH ×2 (15:28→22:11)
[2018-02-08 17:02] VITALS: BP 115/68
[2018-02-08 22:00] VITALS: BP 133/74
[2018-02-08] MEDS: ATORVASTATIN 20 MG TAB PO SCH (22:11)
[2018-02-09] MEDS: TEMAZEPAM 15 MG CAP PO PRN ×2 (00:31→23:09)
[2018-02-09] MEDS: LEVALBUTEROL HCL 1.25 MG/3 ML NEB NEB SCH ×4 (00:40→18:47)
[2018-02-09] MEDS: ACETYLCYSTEINE 10 %(100MG/ML) SOL 4ML NEB SCH ×4 (00:40→18:48)
[2018-02-09] MEDS: IPRATROPIUM BROM 0.5 MG/2.5ML INH SOL NEB SCH ×4 (00:40→18:48)
[2018-02-09 04:59] VITALS: BP 120/59
[2018-02-09] MEDS: MEROPENEM 1GM IVPB 100 ML IV SCH (05:32)
[2018-02-09] MEDS: GABAPENTIN 300 MG CAP PO SCH ×3 (06:00→22:08)
[2018-02-09] MEDS: BUDESONIDE (INHALATION) 0.5 MG/2 ML NEB NEB SCH ×2 (06:16→18:48)
[2018-02-09 06:23] LABS: Basophils # (auto) 0 uL; Eosinophils # (auto) 0 uL; Eosinophils % (auto) 0.3 % (0.0-7.0); Hematocrit 40.2 % (41.0-53.0); Hemoglobin 13.4 g/dL (13.5-17.5); Lymphocytes # (auto) 1.4 uL; Lymphocytes % (auto) 11.2 % (10.0-50.0); Mean Corpuscular Hemoglobin 30.5 pg (28.0-32.0); Mean Corpuscular Hgb Conc. 33.5 g/dL (32.0-36.0); Mean Corpuscular Volume 91.2 fL (80.0-100.0); Monocytes # (auto) 0.7 uL; Monocytes % (auto) 5.6 % (0.0-12.0); Neutrophils # (auto) 10.7 uL; Neutrophils % (auto) 82.9 % (37.0-80.0); Platelet Count (auto) 241 10^3/uL (140-450); Red Blood Cells 4.41 10^6/uL (4.5-5.90); Red Cell Distribution Width 13.7 % (11.8-14.3); White Blood Cell 12.9 10^3/uL (4.4-10.8)
[2018-02-09 06:36] LABS: Potassium 4.5 mmol/L (3.5-5.1)
[2018-02-09 06:52] LABS: BUN/Creatinine Ratio 27.7; Calcium 8.5 mg/dL (8.5-10.1)
[2018-02-09 09:00] VITALS: BP 116/52
[2018-02-09] MEDS: DOCUSATE SOD 100 MG CAP PO SCH ×2 (10:00→22:08)
[2018-02-09] MEDS: FLUCONAZOLE 100 MG TAB PO SCH (10:10)
[2018-02-09] MEDS: ENOXAPARIN SOD 40 MG/0.4 ML SYRINGE SC SCH (10:10)
[2018-02-09] MEDS: ASPirin 81 mg TAB PO SCH (10:10)
[2018-02-09] MEDS: KETOCONAZOLE 2 % TOPICAL CREAM 15GM TOP SCH ×2 (10:11→22:00)
[2018-02-09] MEDS: MONTELUKAST SODIUM 10 MG TAB PO SCH (10:12)
[2018-02-09] MEDS: THEOPHYLLINE 80 MG/15ml ORAL Elixir PO SCH (10:12)
[2018-02-09] MEDS: LEVOFLOXACIN 750MG 150 ML IV SCH (10:12)
[2018-02-09] MEDS: SODIUM CHLOR 0.9% PF (SALINE LOCK) 10ML VIAL/SYR IV SCH ×2 (10:30→21:46)
[2018-02-09 13:00] VITALS: BP 111/63
[2018-02-09 17:00] VITALS: BP 134/82
[2018-02-09] MEDS: ALBUTEROL SULF 2.5 MG/0.5ML(0.5%) NEB SOLN NEB PRN (18:47)
[2018-02-09 20:29] VITALS: BP 134/82
[2018-02-09 21:44] VITALS: BP 126/69
[2018-02-09] MEDS: ATORVASTATIN 20 MG TAB PO SCH (22:08)
[2018-02-10] MEDS: IPRATROPIUM BROM 0.5 MG/2.5ML INH SOL NEB SCH ×5 (00:13→23:01)
[2018-02-10] MEDS: ALBUTEROL SULF 2.5 MG/0.5ML(0.5%) NEB SOLN NEB PRN (00:13)
[2018-02-10] MEDS: ACETYLCYSTEINE 10 %(100MG/ML) SOL 4ML NEB SCH ×2 (00:14→07:10)
[2018-02-10 05:00] VITALS: BP 106/73
[2018-02-10] MEDS: GABAPENTIN 300 MG CAP PO SCH ×3 (05:36→22:03)
[2018-02-10] MEDS: ACETAMINOPHEN 500 MG TAB PO PRN (06:27)
[2018-02-10 06:44] LABS: Basophils # (auto) 0.1 uL; Basophils % (auto) 0.4 % (0.0-2.0); Eosinophils # (auto) 0.2 uL; Eosinophils % (auto) 1.7 % (0.0-7.0); Hemoglobin 14.2 g/dL (13.5-17.5); Lymphocytes # (auto) 1.3 uL; Lymphocytes % (auto) 9.4 % (10.0-50.0); Mean Corpuscular Hgb Conc. 33.8 g/dL (32.0-36.0); Mean Corpuscular Volume 91.9 fL (80.0-100.0); Monocytes # (auto) 1.1 uL; Monocytes % (auto) 7.9 % (0.0-12.0); Neutrophils # (auto) 11.1 uL; Neutrophils % (auto) 80.6 % (37.0-80.0); Platelet Count (auto) 247 10^3/uL (140-450); Red Blood Cells 4.57 10^6/uL (4.5-5.90); Red Cell Distribution Width 14.5 % (11.8-14.3); White Blood Cell 13.8 10^3/uL (4.4-10.8)
[2018-02-10 07:03] LABS: Potassium 4.8 mmol/L (3.5-5.1)
[2018-02-10 07:08] LABS: BUN/Creatinine Ratio 23.7; Calcium 8.3 mg/dL (8.5-10.1)
[2018-02-10] MEDS: LEVALBUTEROL HCL 1.25 MG/3 ML NEB NEB SCH ×5 (07:10→23:01)
[2018-02-10] MEDS: BUDESONIDE (INHALATION) 0.5 MG/2 ML NEB NEB SCH ×2 (07:10→18:33)
[2018-02-10] MEDS: LEVOFLOXACIN 750MG 150 ML IV SCH (08:49)
[2018-02-10] MEDS: DOCUSATE SOD 100 MG CAP PO SCH ×2 (08:49→22:00)
[2018-02-10] MEDS: MONTELUKAST SODIUM 10 MG TAB PO SCH (08:49)
[2018-02-10] MEDS: ASPirin 81 mg TAB PO SCH (08:49)
[2018-02-10] MEDS: SODIUM CHLOR 0.9% PF (SALINE LOCK) 10ML VIAL/SYR IV SCH ×2 (08:49→22:05)
[2018-02-10] MEDS: FLUCONAZOLE 100 MG TAB PO SCH (08:50)
[2018-02-10] MEDS: THEOPHYLLINE 80 MG/15ml ORAL Elixir PO SCH (08:50)
[2018-02-10] MEDS: ENOXAPARIN SOD 40 MG/0.4 ML SYRINGE SC SCH ×2 (08:50→10:00)
[2018-02-10] MEDS: KETOCONAZOLE 2 % TOPICAL CREAM 15GM TOP SCH ×2 (08:50→22:00)
[2018-02-10 09:00] VITALS: BP 118/59
[2018-02-10 13:00] VITALS: BP 118/82
[2018-02-10] MEDS ORDERED: ASPI81CH43 PO (15:48)
[2018-02-10 17:00] VITALS: BP 143/80
[2018-02-10 21:52] VITALS: BP 111/75
[2018-02-10] MEDS: TEMAZEPAM 15 MG CAP PO PRN (22:03)
[2018-02-10] MEDS: ATORVASTATIN 20 MG TAB PO SCH (22:03)
[2018-02-11 05:21] VITALS: BP 108/83
[2018-02-11] MEDS: GABAPENTIN 300 MG CAP PO SCH ×3 (06:08→22:00)
[2018-02-11] MEDS: ACETAMINOPHEN 500 MG TAB PO PRN ×2 (06:12→20:32)
[2018-02-11] MEDS: IPRATROPIUM BROM 0.5 MG/2.5ML INH SOL NEB SCH ×3 (07:34→18:59)
[2018-02-11] MEDS: BUDESONIDE (INHALATION) 0.5 MG/2 ML NEB NEB SCH ×2 (07:34→18:59)
[2018-02-11] MEDS: LEVALBUTEROL HCL 1.25 MG/3 ML NEB NEB SCH ×3 (07:34→18:00)
[2018-02-11] MEDS: THEOPHYLLINE 80 MG/15ml ORAL Elixir PO SCH (08:36)
[2018-02-11] MEDS: LEVOFLOXACIN 750MG 150 ML IV SCH (08:36)
[2018-02-11] MEDS: ENOXAPARIN SOD 40 MG/0.4 ML SYRINGE SC SCH (08:36)
[2018-02-11] MEDS: KETOCONAZOLE 2 % TOPICAL CREAM 15GM TOP SCH ×2 (08:37→22:00)
[2018-02-11] MEDS: ASPirin 81 mg TAB PO SCH (08:37)
[2018-02-11] MEDS: MONTELUKAST SODIUM 10 MG TAB PO SCH (08:37)
[2018-02-11] MEDS: SODIUM CHLOR 0.9% PF (SALINE LOCK) 10ML VIAL/SYR IV SCH ×2 (08:37→22:00)
[2018-02-11] MEDS: DOCUSATE SOD 100 MG CAP PO SCH ×3 (08:37→22:00)
[2018-02-11] MEDS: FLUCONAZOLE 100 MG TAB PO SCH (08:37)
[2018-02-11 09:14] VITALS: BP 105/57
[2018-02-11 13:00] VITALS: BP 93/57
[2018-02-11 17:00] VITALS: BP 107/73
[2018-02-11] MEDS: ALBUTEROL SULF 2.5 MG/0.5ML(0.5%) NEB SOLN NEB PRN (18:59)
[2018-02-11] MEDS: HYDROcodone-ACET 5/325MG TAB PO PRN (20:31)
[2018-02-11 21:48] VITALS: BP 100/68
[2018-02-11] MEDS: ATORVASTATIN 20 MG TAB PO SCH (22:00)
[2018-02-12] MEDS: ALBUTEROL SULF 2.5 MG/0.5ML(0.5%) NEB SOLN NEB PRN (00:03)
[2018-02-12] MEDS: IPRATROPIUM BROM 0.5 MG/2.5ML INH SOL NEB SCH ×3 (00:03→19:12)
[2018-02-12 05:15] VITALS: BP 99/56
[2018-02-12] MEDS: GABAPENTIN 300 MG CAP PO SCH ×3 (06:39→21:25)
[2018-02-12 06:40] LABS: Basophils # (auto) 0.1 uL; Basophils % (auto) 0.7 % (0.0-2.0); Eosinophils # (auto) 0.1 uL; Eosinophils % (auto) 0.7 % (0.0-7.0); Hematocrit 37.1 % (41.0-53.0); Hemoglobin 12.4 g/dL (13.5-17.5); Lymphocytes % (auto) 9.1 % (10.0-50.0); Mean Corpuscular Hemoglobin 30.6 pg (28.0-32.0); Mean Corpuscular Hgb Conc. 33.5 g/dL (32.0-36.0); Mean Corpuscular Volume 91.5 fL (80.0-100.0); Monocytes # (auto) 1.1 uL; Monocytes % (auto) 10.3 % (0.0-12.0); Neutrophils # (auto) 8.9 uL; Neutrophils % (auto) 79.2 % (37.0-80.0); Platelet Count (auto) 234 10^3/uL (140-450); Red Blood Cells 4.05 10^6/uL (4.5-5.90); White Blood Cell 11.2 10^3/uL (4.4-10.8)
[2018-02-12 06:57] LABS: Potassium 4.2 mmol/L (3.5-5.1)
[2018-02-12 07:05] LABS: Calcium 8.4 mg/dL (8.5-10.1)
[2018-02-12] MEDS: BUDESONIDE (INHALATION) 0.5 MG/2 ML NEB NEB SCH ×2 (07:17→19:12)
[2018-02-12] MEDS: LEVALBUTEROL HCL 1.25 MG/3 ML NEB NEB SCH ×3 (07:18→19:12)
[2018-02-12 08:41] VITALS: BP 104/60
[2018-02-12 09:09] VITALS: BP 104/60
[2018-02-12] MEDS: SODIUM CHLOR 0.9% PF (SALINE LOCK) 10ML VIAL/SYR IV SCH ×2 (09:44→21:24)
[2018-02-12] MEDS: FLUCONAZOLE 100 MG TAB PO SCH (09:45)
[2018-02-12] MEDS: ASPirin 81 mg TAB PO SCH (09:45)
[2018-02-12] MEDS: THEOPHYLLINE 80 MG/15ml ORAL Elixir PO SCH (09:46)
[2018-02-12] MEDS: ENOXAPARIN SOD 40 MG/0.4 ML SYRINGE SC SCH (09:46)
[2018-02-12] MEDS: KETOCONAZOLE 2 % TOPICAL CREAM 15GM TOP SCH ×2 (09:47→22:00)
[2018-02-12] MEDS: DOCUSATE SOD 100 MG CAP PO SCH ×2 (09:47→21:25)
[2018-02-12] MEDS: MONTELUKAST SODIUM 10 MG TAB PO SCH (09:47)
[2018-02-12] MEDS: LEVOFLOXACIN 750MG 150 ML IV SCH (09:57)
[2018-02-12 12:27] VITALS: BP 98/63
[2018-02-12 16:50] VITALS: BP 147/78
[2018-02-12] MEDS: ATORVASTATIN 20 MG TAB PO SCH (21:25)
[2018-02-12] MEDS: HYDROcodone-ACET 5/325MG TAB PO PRN (21:26)
[2018-02-12] MEDS: TEMAZEPAM 15 MG CAP PO PRN (21:26)
[2018-02-12 22:20] VITALS: BP 107/62
[2018-02-13] MEDS: LEVALBUTEROL HCL 1.25 MG/3 ML NEB NEB SCH ×4 (00:33→18:47)
[2018-02-13] MEDS: IPRATROPIUM BROM 0.5 MG/2.5ML INH SOL NEB SCH ×5 (00:33→18:46)
[2018-02-13 05:00] VITALS: BP 111/61
[2018-02-13] MEDS: BUDESONIDE (INHALATION) 0.5 MG/2 ML NEB NEB SCH ×2 (05:51→18:46)
[2018-02-13] MEDS: GABAPENTIN 300 MG CAP PO SCH ×3 (06:47→22:52)
[2018-02-13 09:00] VITALS: BP 140/77
[2018-02-13] MEDS: DOCUSATE SOD 100 MG CAP PO SCH ×2 (09:32→22:51)
[2018-02-13] MEDS: ASPirin 81 mg TAB PO SCH (09:32)
[2018-02-13] MEDS: ENOXAPARIN SOD 40 MG/0.4 ML SYRINGE SC SCH (09:33)
[2018-02-13] MEDS: LEVOFLOXACIN 750MG 150 ML IV SCH (09:33)
[2018-02-13] MEDS: THEOPHYLLINE 80 MG/15ml ORAL Elixir PO SCH (09:33)
[2018-02-13] MEDS: MONTELUKAST SODIUM 10 MG TAB PO SCH (09:33)
[2018-02-13] MEDS: SODIUM CHLOR 0.9% PF (SALINE LOCK) 10ML VIAL/SYR IV SCH ×2 (09:34→22:51)
[2018-02-13] MEDS: KETOCONAZOLE 2 % TOPICAL CREAM 15GM TOP SCH ×2 (10:00→22:00)
[2018-02-13] MEDS: FLUCONAZOLE 100 MG TAB PO SCH (12:59)
[2018-02-13 13:00] VITALS: BP 111/63
[2018-02-13] MEDS: MEROPENEM 1GM IVPB 100 ML IV SCH ×2 (14:02→22:55)
[2018-02-13 17:00] VITALS: BP 131/76
[2018-02-13 22:00] VITALS: BP 112/67
[2018-02-13] MEDS: ATORVASTATIN 20 MG TAB PO SCH (22:51)
[2018-02-13] MEDS: HYDROcodone-ACET 5/325MG TAB PO PRN (22:52)
[2018-02-13] MEDS: TEMAZEPAM 15 MG CAP PO PRN (22:53)
[2018-02-14] MEDS: LEVALBUTEROL HCL 1.25 MG/3 ML NEB NEB SCH ×4 (00:56→19:28)
[2018-02-14] MEDS: IPRATROPIUM BROM 0.5 MG/2.5ML INH SOL NEB SCH ×4 (00:56→19:28)
[2018-02-14 05:08] VITALS: BP 126/59
[2018-02-14] MEDS: MEROPENEM 1GM IVPB 100 ML IV SCH ×3 (06:04→21:32)
[2018-02-14] MEDS: GABAPENTIN 300 MG CAP PO SCH ×3 (06:05→21:34)
[2018-02-14 07:19] LABS: Basophils # (auto) 0 uL; Basophils % (auto) 0.3 % (0.0-2.0); Eosinophils # (auto) 0.1 uL; Eosinophils % (auto) 0.5 % (0.0-7.0); Hematocrit 37.9 % (41.0-53.0); Hemoglobin 12.6 g/dL (13.5-17.5); Lymphocytes % (auto) 10.1 % (10.0-50.0); Mean Corpuscular Hemoglobin 30.5 pg (28.0-32.0); Mean Corpuscular Hgb Conc. 33.3 g/dL (32.0-36.0); Mean Corpuscular Volume 91.7 fL (80.0-100.0); Monocytes # (auto) 1.3 uL; Monocytes % (auto) 12.9 % (0.0-12.0); Neutrophils # (auto) 7.4 uL; Neutrophils % (auto) 76.2 % (37.0-80.0); Platelet Count (auto) 242 10^3/uL (140-450); Red Blood Cells 4.13 10^6/uL (4.5-5.90); White Blood Cell 9.7 10^3/uL (4.4-10.8)
[2018-02-14 07:38] LABS: Potassium 4.2 mmol/L (3.5-5.1)
[2018-02-14 07:43] LABS: Calcium 8.9 mg/dL (8.5-10.1)
[2018-02-14] MEDS: BUDESONIDE (INHALATION) 0.5 MG/2 ML NEB NEB SCH ×2 (08:53→19:28)
[2018-02-14 09:00] VITALS: BP 110/60
[2018-02-14] MEDS: LEVOFLOXACIN 750MG 150 ML IV SCH (09:39)
[2018-02-14] MEDS: SODIUM CHLOR 0.9% PF (SALINE LOCK) 10ML VIAL/SYR IV SCH ×2 (09:40→21:33)
[2018-02-14] MEDS: DOCUSATE SOD 100 MG CAP PO SCH ×2 (09:40→21:34)
[2018-02-14] MEDS: FLUCONAZOLE 100 MG TAB PO SCH (09:40)
[2018-02-14] MEDS: ASPirin 81 mg TAB PO SCH (09:40)
[2018-02-14] MEDS: THEOPHYLLINE 80 MG/15ml ORAL Elixir PO SCH (09:41)
[2018-02-14] MEDS: MONTELUKAST SODIUM 10 MG TAB PO SCH (09:41)
[2018-02-14] MEDS: ENOXAPARIN SOD 40 MG/0.4 ML SYRINGE SC SCH (09:42)
[2018-02-14] MEDS: KETOCONAZOLE 2 % TOPICAL CREAM 15GM TOP SCH ×2 (10:00→21:34)
[2018-02-14 12:30] VITALS: BP 101/57
[2018-02-14 17:00] VITALS: BP 104/68
[2018-02-14] MEDS: ACETAMINOPHEN 500 MG TAB PO PRN (19:25)
[2018-02-14 21:30] VITALS: BP 93/50
[2018-02-14] MEDS: TEMAZEPAM 15 MG CAP PO PRN (21:34)
[2018-02-14] MEDS: ATORVASTATIN 20 MG TAB PO SCH (21:34)
[2018-02-15] MEDS: LEVALBUTEROL HCL 1.25 MG/3 ML NEB NEB SCH ×4 (00:16→18:45)
[2018-02-15] MEDS: IPRATROPIUM BROM 0.5 MG/2.5ML INH SOL NEB SCH ×4 (00:16→18:44)
[2018-02-15 05:00] VITALS: BP 107/57
[2018-02-15] MEDS: GABAPENTIN 300 MG CAP PO SCH ×3 (05:20→21:46)
[2018-02-15] MEDS: MEROPENEM 1GM IVPB 100 ML IV SCH ×3 (05:20→21:47)
[2018-02-15] MEDS: HYDROcodone-ACET 5/325MG TAB PO PRN ×2 (05:20→20:43)
[2018-02-15] MEDS: BUDESONIDE (INHALATION) 0.5 MG/2 ML NEB NEB SCH ×2 (06:15→18:44)
[2018-02-15 06:56] LABS: INR 0.98 (0.9-1.15); Partial Thromboplastin Time 31.7 sec (23.78-33.04); Prothrombin Time 10.5 sec (9.27-12.13)
[2018-02-15 08:30] VITALS: BP 83/47
[2018-02-15] MEDS: ASPirin 81 mg TAB PO SCH (09:59)
[2018-02-15] MEDS: KETOCONAZOLE 2 % TOPICAL CREAM 15GM TOP SCH ×2 (10:00→21:47)
[2018-02-15] MEDS: THEOPHYLLINE 80 MG/15ml ORAL Elixir PO SCH (10:00)
[2018-02-15] MEDS: DOCUSATE SOD 100 MG CAP PO SCH ×2 (10:00→21:47)
[2018-02-15] MEDS: FLUCONAZOLE 100 MG TAB PO SCH (10:00)
[2018-02-15] MEDS: LEVOFLOXACIN 750MG 150 ML IV SCH (10:02)
[2018-02-15] MEDS: MONTELUKAST SODIUM 10 MG TAB PO SCH (10:02)
[2018-02-15] MEDS: SODIUM CHLOR 0.9% PF (SALINE LOCK) 10ML VIAL/SYR IV SCH ×2 (10:02→21:47)
[2018-02-15 12:30] VITALS: BP 95/69
[2018-02-15 12:34] LABS: Urine Bacteria NONE SEEN /hpf (None Seen); Urine Blood 1+ /uL (Negative); Urine Mucus FEW (None Seen); Urine Specific Gravity 1.021 (1.001-1.035); Urine WBC 14 /hpf (0 - 3)
[2018-02-15 13:57] VITALS: BP 83/47
[2018-02-15 17:01] VITALS: BP 95/57
[2018-02-15] MEDS: ATORVASTATIN 20 MG TAB PO SCH (21:46)
[2018-02-15 22:00] VITALS: BP 104/58
[2018-02-16] MEDS: LEVALBUTEROL HCL 1.25 MG/3 ML NEB NEB SCH ×4 (00:49→17:33)
[2018-02-16] MEDS: IPRATROPIUM BROM 0.5 MG/2.5ML INH SOL NEB SCH ×4 (00:49→17:32)
[2018-02-16 05:30] VITALS: BP 114/59
[2018-02-16] MEDS: BUDESONIDE (INHALATION) 0.5 MG/2 ML NEB NEB SCH ×2 (06:19→17:32)
[2018-02-16] MEDS: GABAPENTIN 300 MG CAP PO SCH ×3 (06:26→22:16)
[2018-02-16] MEDS: MEROPENEM 1GM IVPB 100 ML IV SCH ×3 (06:26→22:16)
[2018-02-16 09:00] VITALS: BP 97/52
[2018-02-16] MEDS: SODIUM CHLOR 0.9% PF (SALINE LOCK) 10ML VIAL/SYR IV SCH ×2 (10:00→22:16)
[2018-02-16] MEDS: LEVOFLOXACIN 750MG 150 ML IV SCH (10:00)
[2018-02-16] MEDS: KETOCONAZOLE 2 % TOPICAL CREAM 15GM TOP SCH ×2 (10:00→22:00)
[2018-02-16] MEDS ORDERED: SODIUM CHLORIDE LOCK 30 ML ONE (10:15)
[2018-02-16] MEDS ORDERED: LIDOCAINE 2% (LOCAL ANESTH.) PF 5ml SDV ONE ×2 (10:15→10:42)
[2018-02-16] MEDS ORDERED: GLYCOPYRROLATE 0.2 MG/ML 1ML VIAL ONE (10:16)
[2018-02-16] MEDS ORDERED: EPINEPHrine HCL 1 MG/1 ML AMP ONE (10:16)
[2018-02-16] MEDS ORDERED: fentaNYL CITRATE 100 MCG/2 ML VL ONE (10:39)
[2018-02-16] MEDS ORDERED: MIDAZOLAM HCL 1MG/1ML-2 ML VIAL ONE (10:39)
[2018-02-16] MEDS ORDERED: SUCCINYLCHOLINE CHLORIDE 20 MG/ML 10ML VIAL IV ONE (10:40)
[2018-02-16] MEDS ORDERED: PHENYLEPHRINE HCL 10 MG/ML VL IV ONE (10:45)
[2018-02-16] MEDS ORDERED: LIDOCAINE HCL 4% IJ ONE (11:00)
[2018-02-16] MEDS ORDERED: KETOROLAC TROMETH 30 MG/ML 1ML VIAL IV ONE (11:30)
[2018-02-16] MEDS ORDERED: ePHEDrine SULFATE 50 MG/ML AMP IV PRN (11:30)
[2018-02-16] MEDS ORDERED: MIDAZOLAM HCL 1MG/1ML-2 ML VIAL IV PRN (11:30)
[2018-02-16] MEDS ORDERED: HYDROmorphone HCL 2 MG/ML VL IV PRN (11:30)
[2018-02-16] MEDS ORDERED: MORPHINE SULFATE 4 MG/ML SYR/VIAL IV PRN (11:30)
[2018-02-16] MEDS ORDERED: LABETALOL HCL 5 MG/ML 4ML SYRINGE IV PRN (11:30)
[2018-02-16] MEDS ORDERED: ONDANSETRON HCL 4 MG/2 ML VIAL IV ONE (11:30)
[2018-02-16] MEDS ORDERED: PROPOFOL 10 MG/ML 20 ML IV ONE (12:22)
[2018-02-16] MEDS ORDERED: DEXAMETHASONE SOD PHOS 10MG/1ML VIAL INJ ONE (12:22)
[2018-02-16] MEDS: THEOPHYLLINE 80 MG/15ml ORAL Elixir PO SCH (15:43)
[2018-02-16] MEDS: ASPirin 81 mg TAB PO SCH (15:44)
[2018-02-16] MEDS: FLUCONAZOLE 100 MG TAB PO SCH (15:44)
[2018-02-16] MEDS: DOCUSATE SOD 100 MG CAP PO SCH ×2 (15:44→22:16)
[2018-02-16] MEDS: MONTELUKAST SODIUM 10 MG TAB PO SCH (15:45)
[2018-02-16 16:00] VITALS: BP 91/52
[2018-02-16] MEDS: ATORVASTATIN 20 MG TAB PO SCH (22:16)
[2018-02-16] MEDS: TEMAZEPAM 15 MG CAP PO PRN (22:16)
[2018-02-16 23:31] VITALS: BP 97/56
[2018-02-17] MEDS: LEVALBUTEROL HCL 1.25 MG/3 ML NEB NEB SCH ×4 (00:33→18:38)
[2018-02-17] MEDS: IPRATROPIUM BROM 0.5 MG/2.5ML INH SOL NEB SCH ×4 (00:33→18:38)
[2018-02-17] MEDS: GABAPENTIN 300 MG CAP PO SCH ×3 (05:21→22:26)
[2018-02-17] MEDS: MEROPENEM 1GM IVPB 100 ML IV SCH ×3 (05:22→22:26)
[2018-02-17 05:32] VITALS: BP 104/65
[2018-02-17] MEDS: BUDESONIDE (INHALATION) 0.5 MG/2 ML NEB NEB SCH ×2 (07:22→18:38)
[2018-02-17 08:00] VITALS: BP 111/60
[2018-02-17 08:33] LABS: Albumin 1.6 g/dL (3.4-5.0); BUN/Creatinine Ratio 18.8; Calcium 8.6 mg/dL (8.5-10.1)
[2018-02-17 08:35] LABS: Bilirubin, Total 0.2 mg/dL (0.2-1.0); Total Protein 6.2 g/dL (6.4-8.2)
[2018-02-17 09:00] VITALS: BP 111/60
[2018-02-17] MEDS: LEVOFLOXACIN 750MG 150 ML IV SCH (09:54)
[2018-02-17] MEDS: DOCUSATE SOD 100 MG CAP PO SCH ×2 (09:54→22:26)
[2018-02-17] MEDS: KETOCONAZOLE 2 % TOPICAL CREAM 15GM TOP SCH ×2 (09:54→22:00)
[2018-02-17] MEDS: ASPirin 81 mg TAB PO SCH (09:54)
[2018-02-17] MEDS: MONTELUKAST SODIUM 10 MG TAB PO SCH (09:54)
[2018-02-17] MEDS: FLUCONAZOLE 100 MG TAB PO SCH (09:55)
[2018-02-17] MEDS: THEOPHYLLINE 80 MG/15ml ORAL Elixir PO SCH (09:55)
[2018-02-17] MEDS: SODIUM CHLOR 0.9% PF (SALINE LOCK) 10ML VIAL/SYR IV SCH ×2 (09:55→22:34)
[2018-02-17] MEDS ORDERED: HYDROcodone-ACET 5/325MG TAB PO PRN (10:15)
[2018-02-17 13:00] VITALS: BP 114/62
[2018-02-17 17:00] VITALS: BP 109/56
[2018-02-17 22:00] VITALS: BP 90/52
[2018-02-17] MEDS: ATORVASTATIN 20 MG TAB PO SCH (22:26)
[2018-02-17] MEDS: TEMAZEPAM 15 MG CAP PO PRN (22:26)
[2018-02-18] MEDS: LEVALBUTEROL HCL 1.25 MG/3 ML NEB NEB SCH ×3 (00:49→12:01)
[2018-02-18] MEDS: IPRATROPIUM BROM 0.5 MG/2.5ML INH SOL NEB SCH ×3 (00:49→12:01)
[2018-02-18 05:00] VITALS: BP 103/62
[2018-02-18 06:01] LABS: Basophils # (auto) 0 uL; Basophils % (auto) 0.1 % (0.0-2.0); Eosinophils # (auto) 0 uL; Eosinophils % (auto) 0.1 % (0.0-7.0); Hematocrit 32.9 % (41.0-53.0); Lymphocytes # (auto) 0.6 uL; Lymphocytes % (auto) 6.2 % (10.0-50.0); Mean Corpuscular Hemoglobin 30.5 pg (28.0-32.0); Mean Corpuscular Hgb Conc. 33.4 g/dL (32.0-36.0); Mean Corpuscular Volume 91.2 fL (80.0-100.0); Monocytes # (auto) 0.6 uL; Monocytes % (auto) 5.5 % (0.0-12.0); Neutrophils % (auto) 88.1 % (37.0-80.0); Platelet Count (auto) 277 10^3/uL (140-450); Red Blood Cells 3.61 10^6/uL (4.5-5.90); Red Cell Distribution Width 13.9 % (11.8-14.3); White Blood Cell 10.2 10^3/uL (4.4-10.8)
[2018-02-18] MEDS: MEROPENEM 1GM IVPB 100 ML IV SCH (06:12)
[2018-02-18] MEDS: BUDESONIDE (INHALATION) 0.5 MG/2 ML NEB NEB SCH (06:49)
[2018-02-18] MEDS: GABAPENTIN 300 MG CAP PO SCH (07:27)
[2018-02-18 09:00] VITALS: BP 110/55
[2018-02-18] MEDS ORDERED: LEVOFLOXACIN 750MG 150 ML IV SCH (10:00)
[2018-02-18] MEDS: KETOCONAZOLE 2 % TOPICAL CREAM 15GM TOP SCH (10:00)
[2018-02-18] MEDS ORDERED: LEVO750T64 PO (10:17)
[2018-02-18] MEDS ORDERED: FLUC100T34 PO (10:17)
[2018-02-18] MEDS: THEOPHYLLINE 80 MG/15ml ORAL Elixir PO SCH (10:26)
[2018-02-18] MEDS: DOCUSATE SOD 100 MG CAP PO SCH (10:27)
[2018-02-18] MEDS: ASPirin 81 mg TAB PO SCH (10:27)
[2018-02-18] MEDS: SODIUM CHLOR 0.9% PF (SALINE LOCK) 10ML VIAL/SYR IV SCH (10:28)
[2018-02-18] MEDS: MONTELUKAST SODIUM 10 MG TAB PO SCH (10:28)
[2018-02-18] MEDS: FLUCONAZOLE 100 MG TAB PO SCH (10:28)
[2018-02-18 11:11] VITALS: BP 110/55
[2018-02-18 12:39] VITALS: BP 118/60
[2018-02-18 12:40] VITALS: BP 96/66
== END 2018-02-18 13:15 | disposition home or self-care (01) | DRG 871 ==
LOC: EDBD 04:13 → ER 04:21 → TELE 04:22 → TELE-WESTW 18:41 → ICU WEST 01-31 13:15 → DOU IN ICU 02-01 23:54 → TELE-EAST 02-05 20:15 → EAST 02-11 10:41
PROVIDERS: ADMIT Internal Medicine; ATTEND Internal Medicine
PROC: 5A09357 Assistance with Respiratory Ventilation, Less than 24 Consecutive Hours, Continuous Positive Airway Pressure (ICD-10-PCS; 2018-01-29)
PROC: 5A09357 Assistance with Respiratory Ventilation, Less than 24 Consecutive Hours, Continuous Positive Airway Pressure (ICD-10-PCS; 2018-01-30)
PROC: 02HV33Z Insertion of Infusion Device into Superior Vena Cava, Percutaneous Approach (ICD-10-PCS; 2018-01-31)
PROC: 5A09357 Assistance with Respiratory Ventilation, Less than 24 Consecutive Hours, Continuous Positive Airway Pressure (ICD-10-PCS; 2018-01-31)
PROC: 5A09357 Assistance with Respiratory Ventilation, Less than 24 Consecutive Hours, Continuous Positive Airway Pressure (ICD-10-PCS; 2018-02-01)
PROC: 5A09357 Assistance with Respiratory Ventilation, Less than 24 Consecutive Hours, Continuous Positive Airway Pressure (ICD-10-PCS; 2018-02-02)
PROC: 4A023N7 Measurement of Cardiac Sampling and Pressure, Left Heart, Percutaneous Approach (ICD-10-PCS; principal; 2018-02-03)
PROC: B2151ZZ Fluoroscopy of Left Heart using Low Osmolar Contrast (ICD-10-PCS; 2018-02-03)
PROC: B2111ZZ Fluoroscopy of Multiple Coronary Arteries using Low Osmolar Contrast (ICD-10-PCS; 2018-02-03)
PROC: 5A09357 Assistance with Respiratory Ventilation, Less than 24 Consecutive Hours, Continuous Positive Airway Pressure (ICD-10-PCS; 2018-02-03)
PROC: 5A09357 Assistance with Respiratory Ventilation, Less than 24 Consecutive Hours, Continuous Positive Airway Pressure (ICD-10-PCS; 2018-02-04)
PROC: 5A09357 Assistance with Respiratory Ventilation, Less than 24 Consecutive Hours, Continuous Positive Airway Pressure (ICD-10-PCS; 2018-02-05)
PROC: 5A09357 Assistance with Respiratory Ventilation, Less than 24 Consecutive Hours, Continuous Positive Airway Pressure (ICD-10-PCS; 2018-02-06)
PROC: 5A09357 Assistance with Respiratory Ventilation, Less than 24 Consecutive Hours, Continuous Positive Airway Pressure (ICD-10-PCS; 2018-02-10)
PROC: 0B9C7ZX Drainage of Right Upper Lung Lobe, Via Natural or Artificial Opening, Diagnostic (ICD-10-PCS; 2018-02-16)
PROC: 0B948ZZ Drainage of Right Upper Lobe Bronchus, Via Natural or Artificial Opening Endoscopic (ICD-10-PCS; 2018-02-16)
DX: A41.52 Sepsis due to Pseudomonas (principal); I50.33 Acute on chronic diastolic (congestive) heart failure; J96.00 Acute respiratory failure, unspecified whether with hypoxia or hypercapnia; I21.A1 Myocardial infarction type 2; J15.1 Pneumonia due to Pseudomonas; J85.0 Gangrene and necrosis of lung; J44.1 Chronic obstructive pulmonary disease with (acute) exacerbation; N17.9 Acute kidney failure, unspecified; J44.0 Chronic obstructive pulmonary disease with (acute) lower respiratory infection; I13.0 Hypertensive heart and chronic kidney disease with heart failure and stage 1 through stage 4 chronic kidney disease, or unspecified chronic kidney disease; J84.9 Interstitial pulmonary disease, unspecified; K56.7 Ileus, unspecified; I12.9 Hypertensive chronic kidney disease with stage 1 through stage 4 chronic kidney disease, or unspecified chronic kidney disease; N18.3 Chronic kidney disease, stage 3 (moderate); E66.01 Morbid (severe) obesity due to excess calories; G47.30 Sleep apnea, unspecified; G62.9 Polyneuropathy, unspecified; Z96.643 Presence of artificial hip joint, bilateral; E78.5 Hyperlipidemia, unspecified; E88.09 Other disorders of plasma-protein metabolism, not elsewhere classified; I25.10 Atherosclerotic heart disease of native coronary artery without angina pectoris; F17.210 Nicotine dependence, cigarettes, uncomplicated; Z79.82 Long term (current) use of aspirin; Z95.5 Presence of coronary angioplasty implant and graft; I25.2 Old myocardial infarction
CPT/HCPCS: 31622; 31624; 36415; 36569; 36600; 71045; 71046; 71250; 74018; 74176; 74250; 80048; 80053; 80061; 81001; 82550; 82805; 82962; 83735; 83880; 84132; 84443; 84484; 85007; 85025; 85027; 85379; 85610; 85652; 85730; 86141; 86850; 86900; 86901; 87040; 87070; 87075; 87077; 87081; 87086; 87186; 87205; 93005; 93306; 93458; 94640; 94660; 96365; 96375; 97110; 97116; 97163; 97530; 99152; A6257; C9113; J0171; J0330; J0696; J1100; J1956; J2001; J2185; J2250; J2405; J2543; J2704; J3490; J7060; Q9967

== ENCOUNTER 2022-09-04 11:56 | Inpatient (IN) | payer MEDICARE, OTHER ==
[2022-09-04] VITALS (9 sets, daily range): BP systolic 98–135; BP diastolic 61–98
[~2022-09-04] VITALS: Ht 177.8 cm; Wt 97.8 kg
[~2022-09-04 11:56] MED LIST changes: +ASPI81CH43 PO; -CLOP75TA41 PO; +CLOP75TA70 PO; +FLUC100T34 PO; -IBUP800T24 PO; +LEVO750T64 PO; +MONT-8 PO; -MONT10TA34 PO; -NOR10T PO; -PANT1INJ3 IV
[2022-09-04] MEDS ORDERED: ONDANSETRON HCL 4 MG/2 ML VIAL IV ONE ×2 (12:15→15:45)
[2022-09-04] MEDS ORDERED: ASPirin 81 mg TAB PO ONE (12:15)
[2022-09-04] MEDS ORDERED: SODIUM CHLORIDE 0.9% 1,000 ML IVB ONE (12:15)
[2022-09-04] MEDS ORDERED: MORPHINE SULFATE 4 MG/ML SYR/VIAL IV ONE (12:15)
[2022-09-04 13:08] LABS: Basophils # (auto) 0.1 10 ^3/uL (0-0.2); Basophils % (auto) 0.5 % (0.0-2.0); Eosinophils # (auto) 0 10 ^3/uL (0-0.8); Eosinophils % (auto) 0.3 % (0.0-7.0); Hematocrit 42.3 % (41.0-53.0); Hemoglobin 13.6 g/dL (13.5-17.5); Lymphocytes # (auto) 1.3 10 ^3/uL (0.4-5.4); Lymphocytes % (auto) 10.5 % (10.0-50.0); Mean Corpuscular Hgb Conc. 32.1 g/dL (32.0-36.0); Mean Corpuscular Volume 87.1 fL (80.0-100.0); Monocytes # (auto) 1.1 10 ^3/uL (0-1.3); Monocytes % (auto) 9.3 % (0.0-12.0); Neutrophils # (auto) 9.6 10 ^3/uL (1.6-8.6); Neutrophils % (auto) 79.4 % (37.0-80.0); Red Blood Cells 4.86 10^6/uL (4.5-5.90); Red Cell Distribution Width 14.1 % (11.8-14.3); White Blood Cell 12.1 10^3/uL (4.4-10.8)
[2022-09-04 13:20] LABS: Partial Thromboplastin Time 31.1 sec (24.6-33.4)
[2022-09-04 14:13] LABS: Potassium 4.7 mmol/L (3.5-5.1)
[2022-09-04 14:22] LABS: Albumin 3.2 g/dL (3.4-5.0); BUN/Creatinine Ratio 17.4 (10.0-20.0); Bilirubin, Total 0.6 mg/dL (0.2-1.0); Calcium 9.1 mg/dL (8.5-10.1); Magnesium 2.3 mg/dL (1.6-2.6); Total Protein 6.8 g/dL (6.4-8.2)
[2022-09-04] MEDS ORDERED: HEPARIN DRIP/D5W 100UNITS/ML 250 ML IV SCH (15:15)
[2022-09-04] MEDS ORDERED: HEPARIN SODIUM (PORCINE) 5000 UNITS/ML 1ML VIAL IV ONE (15:15)
[2022-09-04] MEDS ORDERED: fentaNYL CITRATE 100 MCG/2 ML VL ONE (15:38)
[2022-09-04] MEDS ORDERED: ANGIOMAX 250 MG VIAL IV ONE (15:38)
[2022-09-04] MEDS ORDERED: ATROPINE SULF 1 MG/10ml SYR ONE (15:38)
[2022-09-04] MEDS ORDERED: MIDAZOLAM HCL 2MG/2ML 2ml VIAL (1mg/ml) ONE (15:38)
[2022-09-04] MEDS ORDERED: SODIUM CHL 0.9% 50 ML ONE (15:39)
[2022-09-04] MEDS ORDERED: IODIXANOL 320MG/ML 100ML BTL IV ONE (15:39)
[2022-09-04] MEDS ORDERED: LIDOCAINE 2%HCL (LOCAL ANESTH.) INJ 20ML MDV ONE ×2 (15:40→16:15)
[2022-09-04] MEDS ORDERED: MORPHINE SULFATE INJ 2 MG/ml SYRG IV ONE (15:45)
[2022-09-04] MEDS ORDERED: HEPARIN SODIUM (PORCINE) 5000 UNITS/ML 1ML VIAL ONE (15:52)
[2022-09-04] MEDS ORDERED: VERAPAMIL 2.5MG/ML INJ 2ML VIAL IV ONE (15:52)
[2022-09-04] MEDS ORDERED: FUROSEMIDE 20 MG/2 ML VIAL ONE (16:11)
[2022-09-04] MEDS ORDERED: IPRATROPIUM BROM 0.5 MG/2.5ML INH SOL NEB ONE (17:00)
[2022-09-04] MEDS ORDERED: ALBUTEROL SULF 2.5 MG/0.5ML(0.5%) NEB SOLN NEB ONE (17:00)
[2022-09-04 17:38] LABS: Cholesterol 178 mg/dL (< 200); HDL Cholesterol 39 mg/dL (40-59); LDL Cholesterol 120 mg/dL (< 100); Triglycerides 85 mg/dL (< 150)
[2022-09-04] MEDS ORDERED: ACETAMINOPHEN 325 MG TAB PO PRN (17:45)
[2022-09-04] MEDS ORDERED: HYDROcodone-ACET 5/325MG TAB PO PRN (17:45)
[2022-09-04] MEDS ORDERED: NITROGLYCERIN 0.4 MG SL TAB SL PRN (17:45)
[2022-09-04] MEDS ORDERED: ALBUTEROL SULF 2.5 MG/0.5ML(0.5%) NEB SOLN NEB PRN (17:45)
[2022-09-04] MEDS ORDERED: IPRATROPIUM BROM 0.5 MG/2.5ML INH SOL NEB PRN (17:45)
[2022-09-04] MEDS ORDERED: ONDANSETRON HCL 4 MG/2 ML VIAL IV PRN (17:45)
[2022-09-04] MEDS ORDERED: methylPREDNISolone SOD SUCC 125 MG/2 ML VL IV ONE (17:45)
[2022-09-04] MEDS ORDERED: MORPHINE SULFATE INJ 2 MG/ml SYRG IV PRN (17:45)
[2022-09-04] MEDS ORDERED: DOCUSATE SOD 100 MG CAP PO PRN (17:45)
[2022-09-04] MEDS ORDERED: GAB100C PO (17:46)
[2022-09-04] MEDS ORDERED: TRAZ100T3 PO (17:46)
[2022-09-04] MEDS ORDERED: EZET-10 PO (17:46)
[2022-09-04] MEDS ORDERED: TAMS0.4C36 PO (17:46)
[2022-09-04] MEDS ORDERED: FLUT1AER3 INH (17:46)
[2022-09-04] MEDS ORDERED: ROSU1TAB15 PO (17:46)
[2022-09-04] MEDS ORDERED: methylPREDNISolone SOD SUCC 125 MG/2 ML VL ONE (17:51)
[2022-09-04] MEDS: SODIUM CHLOR 0.9% PF (SALINE LOCK) 10ML VIAL/SYR IV SCH (22:00)
[2022-09-04] MEDS: GABAPENTIN 100 MG CAP PO SCH (22:04)
[2022-09-04] MEDS: ATORVASTATIN 20 MG TAB PO SCH (22:04)
[2022-09-04] MEDS: traZODone HCL 50 MG TAB PO SCH (22:04)
[2022-09-05] MEDS ORDERED: HEPARIN DRIP/D5W 100UNITS/ML 250 ML IV SCH (00:15)
[2022-09-05 05:00] VITALS: BP 88/55
[2022-09-05 06:11] LABS: Basophils # (auto) 0 10 ^3/uL (0-0.2); Basophils % (auto) 0.2 % (0.0-2.0); Eosinophils # (auto) 0 10 ^3/uL (0-0.8); Hematocrit 35.8 % (41.0-53.0); Lymphocytes # (auto) 1.3 10 ^3/uL (0.4-5.4); Lymphocytes % (auto) 7.4 % (10.0-50.0); Mean Corpuscular Hemoglobin 29.1 pg (28.0-32.0); Mean Corpuscular Hgb Conc. 33.4 g/dL (32.0-36.0); Mean Corpuscular Volume 87.1 fL (80.0-100.0); Monocytes # (auto) 0.6 10 ^3/uL (0-1.3); Monocytes % (auto) 3.3 % (0.0-12.0); Neutrophils # (auto) 15.9 10 ^3/uL (1.6-8.6); Neutrophils % (auto) 89.1 % (37.0-80.0); Red Blood Cells 4.11 10^6/uL (4.5-5.90); Red Cell Distribution Width 14.1 % (11.8-14.3); White Blood Cell 17.8 10^3/uL (4.4-10.8)
[2022-09-05 06:30] LABS: Albumin 2.5 g/dL (3.4-5.0); Calcium 8.7 mg/dL (8.5-10.1); Potassium 5.1 mmol/L (3.5-5.1)
[2022-09-05 06:33] LABS: Bilirubin, Total 0.6 mg/dL (0.2-1.0); Total Protein 6.4 g/dL (6.4-8.2)
[2022-09-05 07:35] LABS: INR 1.08 (0.9-1.15); Partial Thromboplastin Time 52.4 sec (24.6-33.4)
[2022-09-05] MEDS: SODIUM CHLOR 0.9% PF (SALINE LOCK) 10ML VIAL/SYR IV SCH ×3 (07:56→21:16)
[2022-09-05 08:44] VITALS: BP 96/50
[2022-09-05] MEDS: Fluticasone-Umeclidinium-Vilan (Trelegy Ellipta 100-62.5-25 Mcg/I IN SCH (09:35)
[2022-09-05] MEDS: methylPREDNISolone SOD SUCC 40 MG/ML VL IV SCH ×2 (09:38→21:15)
[2022-09-05] MEDS: CLOPIDOGREL BISULFATE 75 MG TAB PO SCH (09:38)
[2022-09-05] MEDS: TAMSULOSIN HYDROCHLORIDE 0.4 MG CAP PO SCH (09:38)
[2022-09-05] MEDS: GABAPENTIN 100 MG CAP PO SCH ×2 (09:38→21:13)
[2022-09-05] MEDS ORDERED: SODIUM CHLORIDE 0.9% 1,000 ML IV ONE (11:30)
[2022-09-05] MEDS ORDERED: cefTRIAXone 1GM/50ML D5W 50 ML IV ONE (11:45)
[2022-09-05] MEDS ORDERED: AZITHROMYCIN 500MG/ 250ML 250 ML IV ONE (11:45)
[2022-09-05] MEDS ORDERED: LORazepam 2MG/ML-1ML VIAL IV ONE (12:00)
[2022-09-05 13:00] VITALS: BP 95/58
[2022-09-05 16:39] VITALS: BP 93/50
[2022-09-05 20:00] VITALS: BP 104/57
[2022-09-05] MEDS: traZODone HCL 50 MG TAB PO SCH (21:13)
[2022-09-05] MEDS: ATORVASTATIN 20 MG TAB PO SCH (21:14)
[2022-09-05] MEDS: ENOXAPARIN SOD 100 MG/1 ML SYRINGE SC SCH (21:15)
[2022-09-06] MEDS: SODIUM CHLOR 0.9% PF (SALINE LOCK) 10ML VIAL/SYR IV SCH (06:18)
[2022-09-06 08:58] VITALS: BP 104/49
[2022-09-06] MEDS ORDERED: cefTRIAXone 1GM/50ML D5W 50 ML IV SCH (09:00)
[2022-09-06] MEDS: TAMSULOSIN HYDROCHLORIDE 0.4 MG CAP PO SCH (09:35)
[2022-09-06] MEDS: CLOPIDOGREL BISULFATE 75 MG TAB PO SCH (09:35)
[2022-09-06] MEDS: GABAPENTIN 100 MG CAP PO SCH (09:35)
[2022-09-06] MEDS: methylPREDNISolone SOD SUCC 40 MG/ML VL IV SCH (09:35)
[2022-09-06] MEDS: Fluticasone-Umeclidinium-Vilan (Trelegy Ellipta 100-62.5-25 Mcg/I IN SCH (09:36)
[2022-09-06] MEDS: ENOXAPARIN SOD 100 MG/1 ML SYRINGE SC SCH (09:36)
[2022-09-06] MEDS ORDERED: ASPirin 81 mg TAB PO SCH (10:00)
[2022-09-06] MEDS ORDERED: AZITHROMYCIN 500MG/ 250ML 250 ML IV SCH (10:00)
[2022-09-06] MEDS ORDERED: ENOXAPARIN SOD 40 MG/0.4 ML SYRINGE SC SCH (10:00)
[2022-09-06] MEDS ORDERED: AZIT500T66 PO (10:09)
[2022-09-06] MEDS ORDERED: HYDR-4902 PO (10:09)
[2022-09-06 12:44] VITALS: BP 124/70
== END 2022-09-06 14:30 | disposition home or self-care (01) | DRG 871 ==
LOC: EDBD 11:56 → EDUNIT# 11:56 → ER 11:56 → TELE 17:33 → TELE-WESTW 19:24
PROVIDERS: ADMIT Nurse Practitioner Family; ATTEND Family Medicine
PROC: 4A023N7 Measurement of Cardiac Sampling and Pressure, Left Heart, Percutaneous Approach (ICD-10-PCS; principal; 2022-09-04)
PROC: B211YZZ Fluoroscopy of Multiple Coronary Arteries using Other Contrast (ICD-10-PCS; 2022-09-04)
PROC: B215YZZ Fluoroscopy of Left Heart using Other Contrast (ICD-10-PCS; 2022-09-04)
PROC: B310YZZ Fluoroscopy of Thoracic Aorta using Other Contrast (ICD-10-PCS; 2022-09-04)
PROC: B410YZZ Fluoroscopy of Abdominal Aorta using Other Contrast (ICD-10-PCS; 2022-09-04)
DX: A41.9 Sepsis, unspecified organism (principal); I21.4 Non-ST elevation (NSTEMI) myocardial infarction; J18.9 Pneumonia, unspecified organism; N17.9 Acute kidney failure, unspecified; I13.0 Hypertensive heart and chronic kidney disease with heart failure and stage 1 through stage 4 chronic kidney disease, or unspecified chronic kidney disease; E78.5 Hyperlipidemia, unspecified; F17.210 Nicotine dependence, cigarettes, uncomplicated; G89.29 Other chronic pain; I25.10 Atherosclerotic heart disease of native coronary artery without angina pectoris; I50.9 Heart failure, unspecified; J43.9 Emphysema, unspecified; N18.9 Chronic kidney disease, unspecified; Z96.643 Presence of artificial hip joint, bilateral; Z96.652 Presence of left artificial knee joint; H26.9 Unspecified cataract; Z63.4 Disappearance and death of family member; Z95.5 Presence of coronary angioplasty implant and graft; Z71.6 Tobacco abuse counseling
CPT/HCPCS: 36415; 71045; 71250; 76937; 78582; 80053; 80061; 83735; 83880; 84484; 85025; 85610; 85730; 87040; 93005; 93306; 93458; 93567; 94640; 96361; 96374; 96375; 99152; 99153; 99291; G0378; J0696; J2250; J2405; Q9967